=== PATIENT | male | born 1995 | race Caucasian/White ===

== ENCOUNTER 2018-07-16 09:09 | Inpatient (IN) ==
[2018-07-16] MEDS ORDERED: Acetaminophen 325 MG Tablet PO ONE (09:35)
[2018-07-16] MEDS ORDERED: Vancomycin Inj 1,000 MG in Sodium Chlor 0.9% Inj 250 ML IV.SIG STA (09:38)
[2018-07-16] MEDS ORDERED: Aztreonam Inj 2 GM in Sodium Chloride 0.9% Inj 100 ML IV.SIG STA (09:38)
[2018-07-16] MEDS ORDERED: Morphine Inj 4 MG/ML Vial IV.PUSH ONE (09:39)
[2018-07-16] MEDS ORDERED: Sod Chloride 0.9% Inj 400 ML IV.SIG SCH (09:45)
[2018-07-16] MEDS ORDERED: Sod Chloride 0.9% Inj 1,000 ML IV.SIG SCH ×2 (09:45)
[2018-07-16 09:56] LABS: Baso # (Auto) 1.3 th/mm3 (0.0-0.2); Baso % (Auto) 4.5 % (0.0-2.0); Eos % (Auto) 0.1 % (0.0-4.0); Hematocrit 47.2 % (39.0-51.0); Hemoglobin 16.3 gm/dL (13.0-17.0); Lymph # (Auto) 1.2 th/mm3 (1.0-4.8); Lymph % (Auto) 4.1 % (9.0-44.0); Mean Corpuscular HGB Conc 34.5 % (32.0-36.0); Mean Corpuscular Hemoglobin 30.8 pg (27.0-34.0); Mean Corpuscular Volume 89.1 fL (80.0-100.0); Mean Platelet Volume 7.6 fL (7.0-11.0); Mono # (Auto) 1.1 th/mm3 (0.0-0.9); Mono % (Auto) 3.8 % (0.0-8.0); Neut # (Auto) 25.1 th/mm3 (1.8-7.7); Neut % (Auto) 87.5 % (16.0-70.0); Platelet Count 227 th/mm3 (150-450); Red Cell Distribution Width 12.2 % (11.6-17.2); White Blood Count 28.7 th/mm3 (4.0-11.0)
[2018-07-16 10:03] LABS: Chloride 98 meq/L (98-107); Potassium 3.6 meq/L (3.5-5.1); Sodium 134 meq/L (136-145)
[2018-07-16 10:06] LABS: Albumin 3.9 g/dL (3.4-5.0); Anion Gap 11 meq/L (5-15); Calcium 8.9 mg/dL (8.5-10.1); Glucose,Random 125 mg/dL (74-106); Magnesium 1.5 mg/dL (1.5-2.5)
[2018-07-16 10:07] LABS: Blood Urea Nitrogen 14 mg/dL (7-18)
[2018-07-16 10:09] LABS: Alanine Aminotransferase 22 U/L (12-78); Aspartate Aminotransferase 13 U/L (15-37)
[2018-07-16 10:10] LABS: Glomerular Filtration Rate 76 mL/min (>89)
--- NOTE | 2018-07-16 10:10 | ED ---
HPI General Chief complaint: Skin/Abscess/Foreign Body Stated complaint: pain/swelling lt elbow x yesterday Time Seen by Provider: 07/16/18 09:33 Source: patient Mode of arrival: ambulatory Limitations: no limitations History of Present Illness MD complaint: Reports discoloration (Redness and swelling) Onset (ago): day(s) (1) Location: Reports LUE Severity scale (1-10): 6 Quality: Reports aching Pain Consistency: constant Relieving factors: other (Being still) Exacerbating factors: movement Context: Reports other (He states that he cut his elbow at work a couple weeks ago. The wound healed. The redness and swelling started yesterday.) Associated symptoms: Reports fever, chills, nausea and vomiting Treatments prior to arrival: Reports none Related Data Home Medications Medication Instructions Recorded Confirmed timolol 1 drp OPHTHALMIC (EYE) DAILY 07/16/18 07/16/18 Allergies Allergy/AdvReac Type Severity Reaction Status Date / Time amoxicillin Allergy Hives Verified 07/16/18 09:19 Review of Systems ROS: all other systems reviewed are negative REPLACED BY [facility] Medical History Medical History Glaucoma suspect of both eyes (Acute) Social History Social History Substance History: No History of Abuse Second Hand Smoke Exposure: No Smoking Status: Current every day smoker Tobacco Type: E-Cigarettes How Often Do You Have a Drink Containing Alcohol: 2 to 4 times a month Recent Travel in [facility] within the Last 8 Weeks: No Recent Out of Country Travel within the Last 8 Weeks: No Immunization History Tetanus Immunization: Unsure Exam Const General: cooperative, healthy appearing, comfortable, no acute distress, well developed and well groomed Orientation: alert, awake and oriented x3 HENMT Head: normal to inspection, normocephalic and atraumatic Nose: no nasal discharge and no epistaxis Mouth: moist mucous membranes Eyes Conjunctivae: conjunctivae normal Sclera: sclerae normal Pupils: PERRL EOM: EOM intact bilaterally Neck Neck: normal visual inspection and full ROM Chest Chest: normal inspection of the chest Resp Effort & Inspection: normal respiratory effort and able to speak in complete sentences Auscultation: clear to auscultation bilaterally Cardio Rate: regular rate Rhythm: regular rhythm Heart Sounds: no murmurs GI Inspection: non-distended Palpation: soft, no hepatosplenomegaly and nontender Back/Spine/Pelvis Cervical Spine: cervical ROM normal Thoracic/Lumbar Spine: thoraco-lumbar ROM normal Skin General: erythema and other (Hot and swollen. No palpable fluctuance.) Neuro General: alert, awake, oriented x3, moves all extremities and CN's II-XI intact bilaterally Cranial Nerves: other Speech: speech normal Motor: no movement abnormalities noted Extrem General: normal to inspection and full ROM Psych Appearance: grossly normal Mental Status: mental status grossly normal Speech and Movement: speech and movement normal Mood: congruent mood Affect: normal affect Attitude: cooperative Thought Process: normal Thought Content: normal Judgment: judgment good Procedures Ultrasound POC Ultrasound Procedure: Ultrasound showed no fluid collection Course Consultations Consultation #1: Dr. Barnes will admit Time: 10:21 Initial Documented Vital Signs Temperature 101.8 F H 07/16/18 09:16 Pulse Rate 122 H 07/16/18 09:16 Respiratory Rate 20 07/16/18 09:16 Blood Pressure 112/73 07/16/18 09:16 Pulse Oximetry 97 07/16/18 09:16 Last Documented Vital Signs Temperature 101.8 F H 07/16/18 09:16 Pulse Rate 122 H 07/16/18 09:16 Respiratory Rate 20 07/16/18 09:16 Blood Pressure 112/73 07/16/18 09:16 Pulse Oximetry 97 07/16/18 09:16 Critical Care Time Critical Care Time: Yes Total Critical Care Time: 30 Attestation: Time to perform other separately billable procedures was not included in the critical care time. My time did not include minutes spent treating any other patients simultaneously or on activities that did not directly contribute to the patient's treatment. The services I provided to this patient were to treat and/or prevent clinically significant deterioration due to sepsis I provided critical care services requiring my management, as noted below: Chart data review, documentation time, medication orders and management, vital sign assessments/reviewing monitor data, ordering and reviewing lab tests, ordering and interpreting/reviewing x-rays and diagnostic studies, care of the patient and discussion of the patient with the admitting physicians Medical Decision Making MDM Narrative Medical decision making narrative: This patient presents with redness and swelling of the left elbow which started yesterday. He reports a cut to the elbow a couple of weeks ago which healed without incident. Associated symptoms include fever and nausea/vomiting. He is allergic to penicillin. He meets SIRS and sepsis criteria. Because of the penicillin allergy, he is being treated with aztreonam, Flagyl and vancomycin. He is also receiving a 30 cc/kg fluid bolus, Tylenol for fever, Zofran for nausea and morphine for pain. This patient needs to be admitted for IV antibiotics. Medical Screen Exam Complete: Yes Emergency Medical Condition: Yes Lab Data Lab results reviewed: Yes I reviewed the patient's lab results. Result diagrams: 07/16/18 09:40 07/16/18 09:40 Lab Results 07/16/18 07/16/18 07/16/18 Range/Units 09:40 09:40 09:40 CBC w Diff Slide review pending WBC 28.7 H (4.0-11.0) th/mm3 RBC 5.30 (4.50-5.90) mil/mm3 Hgb 16.3 (13.0-17.0) gm/dL Hct 47.2 (39.0-51.0) % MCV 89.1 (80.0-100.0) fL MCH 30.8 (27.0-34.0) pg MCHC 34.5 (32.0-36.0) % RDW 12.2 (11.6-17.2) % Plt Count 227 (150-450) th/mm3 MPV 7.6 (7.0-11.0) fL Neut % (Auto) 87.5 H (16.0-70.0) % Lymph % (Auto) 4.1 L (9.0-44.0) % [place] % (Auto) 3.8 (0.0-8.0) % Eos % (Auto) 0.1 (0.0-4.0) % Baso % (Auto) 4.5 H (0.0-2.0) % Neut # (Auto) 25.1 H (1.8-7.7) th/mm3 Lymph # (Auto) 1.2 (1.0-4.8) th/mm3 [place] # (Auto) 1.1 H (0.0-0.9) th/mm3 Eos # (Auto) 0.0 (0.0-0.4) th/mm3 Baso # (Auto) 1.3 H (0.0-0.2) th/mm3 Differential Comment . Sodium 134 L (136-145) meq/L Potassium 3.6 (3.5-5.1) meq/L Chloride 98 (98-107) meq/L Carbon Dioxide 25.0 (21.0-32.0) meq/L Anion Gap 11 (5-15) meq/L BUN 14 (7-18) mg/dL Creatinine 1.20 (0.60-1.30) mg/dL Estimated GFR 76 L (>89) mL/min Random Glucose 125 H (74-106) mg/dL Lactic Acid 2.5 H (0.4-2.0) mmol/L Calcium 8.9 (8.5-10.1) mg/dL Magnesium 1.5 (1.5-2.5) mg/dL Total Bilirubin 1.5 H (0.2-1.0) mg/dL AST 13 L (15-37) U/L ALT 22 (12-78) U/L Alkaline Phosphatase 75 (45-117) U/L Total Protein 7.3 (6.4-8.2) g/dL Albumin 3.9 (3.4-5.0) g/dL Discharge Plan Discharge Disposition Patient Disposition: 30 Still Patient Discharge Details Diagnosis: Sepsis, Cellulitis Physicians Team ED Provider: Courtney Mann Primary Care Provider: Primary Care [facility] Treviño Rxs /Orders / Referrals /Forms Prescriptions: No Action timolol 0.5 % Drops 1 drp OPHTHALMIC (EYE) DAILY RF: 0 Status ED Status: Pending Admission
[2018-07-16 10:11] LABS: Total Protein 7.3 g/dL (6.4-8.2)
[2018-07-16 10:12] LABS: Alkaline Phosphatase 75 U/L (45-117)
[2018-07-16 10:30] LABS: Eosinophils 1 % (0-4); Lymphocytes 2 % (9-44); Monocytes 5 % (0-8)
[2018-07-16 10:31] LABS: Platelet Estimate Normal (Normal); Platelet Morphology Normal (Normal); RBC Morphology Normal (Normal); Toxic Granulation 1+
[2018-07-16] MEDS ORDERED: Bisacodyl 10 MG Supp RECTAL PRN (11:00)
--- NOTE | 2018-07-16 11:53 | P.HP ---
History of Present Illness Primary Care Physician: No Primary Care Physician Chief Complaint: Left elbow swelling and pain History of Present Illness: This is a 22-year-old male patient who presented to the ED with complaints of left elbow swelling and pain. Patient states that about 2 weeks ago he had cut his left elbow on something, he cannot recall what, and since that time he has been using Neosporin for the cut. He states that the cut had been improving although overnight he developed a fever of 102.5 as well as nausea and vomiting , which prompted his presentation to the ED. He states that last night his left elbow pain worsened as well as the swelling. At the time of assessment today he is unable to fully extend his elbow without significant pain. Elbow is swollen without any fluctuance, does have erythema localized to the elbow. - Diagnosis (1) Sepsis (2) Cellulitis Inpatient Certification: I certify that the inpatient services were ordered in accordance with Medicare regulations governing the order. This includes certification that hospital inpatient services are reasonable and necessary and in the case of services not specified as inpatient-only under 42 CFR 419.22(n), that they are appropriately provided as inpatient services in accordance to with the 2-midnight benchmark under 43 CFR 412.3(e) Estimated Total Length of Stay (Days): 3 Plans for Post Hospital Care: Home Review of Systems All other systems reviewed negative except as stated in HPI PMFSH - History History Provided By: Patient, Family Member - Medical / Surgical Hx Neg / Unobtainable Surgical History: No Previous Surgery - Medical History Medical History: Medical History (Last Reviewed 07/16/18 @ 11:53 by Ashli Vines) Glaucoma suspect of both eyes - Family History Family History: Family History (Last Updated 07/16/18 @ 12:46 by Ashli Vines) Other Family history in first degree relatives is unremarkable - Social History I have reviewed the patient's Social History: Yes - Tobacco History Second Hand Smoke Exposure: No Tobacco Use In Past 30 Days: No Smoking Status: Current every day smoker Tobacco Type: E-Cigarettes - Alcohol History How Often Do You Have a Drink Containing Alcohol: 2 to 4 times a month - Substance Use History Substance History: No History of Abuse - Travel History Recent Travel in the [place] Within the Last 8 Weeks: No Recent Travel Out of the Country Within the Last 8 Weeks: No - Immunization History Tetanus Immunization: Unsure Medications and Allergies Active Medications: Active Medications Acetaminophen (Tylenol) 650 mg PO Q4H PRN PRN Reason: Temp > 100.4 Al Hydroxide/Mg Hydroxide (Milk Of Magnesia Liq) 30 ml PO Q12H PRN PRN Reason: Mild Constipation Bisacodyl (Dulcolax Supp) 10 mg RECTAL DAILY PRN PRN Reason: SEVERE CONSITIPATION Sodium Chloride (Ns Inj) 1,000 mls @ 0 mls/hr IV.SIG .Q0M REYNALDO Last Infusion: 07/16/18 10:37 Dose: Infused Sodium Chloride (Ns Inj) 1,000 mls @ 0 mls/hr IV.SIG .Q0M REYNALDO Last Admin: 07/16/18 10:36 Dose: 999 mls/hr Sodium Chloride (Ns Inj) 400 mls @ 0 mls/hr IV.SIG .Q0M REYNALDO Sodium Chloride (Ns Inj) 1,000 mls @ 100 mls/hr IV.CONT .Q10H REYNALDO Vancomycin HCl 1,000 mg/ (Sodium Chloride) 250 mls @ 250 mls/hr IV.SIG Q24H REYNALDO Aztreonam 2 gm/ Sodium (Chloride) 100 mls @ 200 mls/hr IV.SIG Q8H REYNALDO Lactulose (Lactulose Liq) 30 ml PO DAILY PRN PRN Reason: SEVERE CONSITIPATION Ondansetron HCl (Zofran Inj) 4 mg IV.PUSH Q6H PRN PRN Reason: NAUSEA OR VOMITING Sennosides (Senokot) 17.2 mg PO Q12H PRN PRN Reason: Moderate Constipation Allergies Allergy/AdvReac Type Severity Reaction Status Date / Time amoxicillin Allergy Hives Verified 07/16/18 09:19 Home Medications Medication Instructions Recorded Confirmed Type timolol 1 drp OPHTHALMIC (EYE) DAILY 07/16/18 07/16/18 History Exam Vital signs: Vital Signs 07/16/18 09:16 07/16/18 10:27 Temperature 101.8 F H 99.8 F H Pulse Rate 122 H 112 H Respiratory Rate 20 18 Blood Pressure 112/73 122/53 L Pulse Oximetry 97 98 Intake & Output 07/15/18 07/16/18 07/16/18 18:59 06:59 18:59 Intake Total 1100 / 1100 Balance 1100 / 1100 Weight 74.6 kg Intake: IV 1100 / 1100 Azactam Inj 2 GM In NS Inj 100 100 / 100 ML @ 200 mls/hr IV.SIG STAT STA Rx#:[id number] NS Inj 1,000 ML @ Wide Open IV. 1000 / 1000 SIG .Q0M REYNALDO Rx#:[id number] Narrative: GENERAL: Well-developed, well-nourished patient in NAD. SKIN: Warm and dry. No rash. LEFT ELBOW: Limited range of motion, significant swelling to left elbow joint and erythema localized to area. No fluctuance. HEAD: Normocephalic. Atraumatic. EYES: Pupils equal and round. No scleral icterus. No injection or drainage. ENT: No nasal bleeding or discharge. Mucous membranes pink and moist. NECK: Supple. Trachea midline. CARDIOVASCULAR: Regular rate and rhythm. S1, S2 noted. No murmur appreciated. RESPIRATORY: No accessory muscle use. Clear to auscultation. Breath sounds equal bilaterally. GASTROINTESTINAL: Abdomen soft, non-tender, nondistended. Normoactive bowel sounds x4. MUSCULOSKELETAL: No obvious deformities. Extremities without clubbing, cyanosis , or edema. NEUROLOGICAL: Awake and alert. No obvious cranial nerve deficits. Motor grossly within normal limits. 5/5 muscle strength in bilateral upper and lower extremities. Normal speech. PSYCHIATRIC: Appropriate mood and affect; insight and judgment normal. Results - Labs CBC & Chem 7: 07/16/18 09:40 07/16/18 09:40 Labs: Laboratory Results - last 24 hr 07/16/18 07/16/18 07/16/18 09:40 09:40 09:40 CBC w Diff Slide review pending WBC 28.7 H RBC 5.30 Hgb 16.3 Hct 47.2 MCV 89.1 MCH 30.8 MCHC 34.5 RDW 12.2 Plt Count 227 MPV 7.6 Neut % (Auto) 87.5 H Lymph % (Auto) 4.1 L [place] % (Auto) 3.8 Eos % (Auto) 0.1 Baso % (Auto) 4.5 H Neut # (Auto) 25.1 H Lymph # (Auto) 1.2 [place] # (Auto) 1.1 H Eos # (Auto) 0.0 Baso # (Auto) 1.3 H WBC Differential Manual diff final Seg Neuts % (Manual) 74 H Band Neuts % (Manual) 17 H Lymphocytes % (Manual) 2 L Monocytes % (Manual) 5 Eosinophils % (Manual) 1 Basophils % (Manual) 1 Abs Neuts (Manual) 26.1 H Differential Comment . Toxic Granulation 1+ H Platelet Estimate Normal Platelet Morphology Normal RBC Morphology Normal Sodium 134 L Potassium 3.6 Chloride 98 Carbon Dioxide 25.0 Anion Gap 11 BUN 14 Creatinine 1.20 Estimated GFR 76 L Random Glucose 125 H Lactic Acid 2.5 H Calcium 8.9 Magnesium 1.5 Total Bilirubin 1.5 H AST 13 L ALT 22 Alkaline Phosphatase 75 Total Protein 7.3 Albumin 3.9 Caprini VTE Risk Assessment Caprini VTE Risk Assessment: No/Low Risk (score <= 1) Caprini Risk Assessment Model: Point Value = 1 Point Value = 2 Point Value = 3 Point Value = 5 Age 41-60 Minor surgery BMI > 25 kg/m2 Swollen legs Varicose veins or History of unexplained or recurrent spontaneous Oral contraceptives or hormone replacement Sepsis (< 1 month) Serious lung disease, including pneumonia (< 1 month) Abnormal pulmonary function Acute myocardial infarction Congestive heart failure (< 1 month) History of inflammatory bowel disease Medical patient at bed rest Age 61-74 Arthroscopic surgery Major open surgery (> 45 min) Laparoscopic surgery (> 45 min) Malignancy Confined to bed (> 72 hours) Immobilizing plaster cast Central venous access Age >= 75 History of VTE Family history of VTE Factor V Leiden Prothrombin [id number] Lupus anticoagulant Anticardiolipin antibodies Elevated serum homocysteine Heparin-induced thrombocytopenia Other congenital or acquired thrombophilia Stroke (< 1 month) Elective arthroplasty Hip, pelvis, or leg fracture Acute spinal cord injury (< 1 month) Prophylaxis Regimen: Total Risk Factor Score Risk Level Prophylaxis Regimen 0-1 Low Early ambulation 2 Moderate Order ONE of the following: *Sequential Compression Device (SCD) *Heparin 5000 units SQ BID 3-4 Higher Order ONE of the following medications: *Heparin 5000 units SQ TID *Enoxaparin/Lovenox 40 mg SQ daily (WT < 150 kg, CrCl > 30 mL/min) *Enoxaparin/Lovenox 30 mg SQ daily (WT < 150 kg, CrCl > 10-29 mL/min) *Enoxaparin/Lovenox 30 mg SQ BID (WT < 150 kg, CrCl > 30 mL/min) AND/OR *Sequential Compression Device (SCD) 5 or more Highest Order ONE of the following medications: *Heparin 5000 units SQ TID (Preferred with Epidurals) *Enoxaparin/Lovenox 40 mg SQ daily (WT < 150 kg, CrCl > 30 mL/min) *Enoxaparin/Lovenox 30 mg SQ daily (WT < 150 kg, CrCl > 10-29 mL/min) *Enoxaparin/Lovenox 30 mg SQ BID (WT < 150 kg, CrCl > 30 mL/min) AND *Sequential Compression Device (SCD) Assessment and Plan - Assessment (1) Sepsis Code(s): A41.9 - Sepsis, unspecified organism Status: Acute (2) Cellulitis Code(s): L03.90 - Cellulitis, unspecified Status: Acute - Plan This is a 22-year-old male patient with: Sepsis Left elbow cellulitis -Patient complaint of abrasion to laceration to left elbow x 2 weeks ago. Worsened pain and swelling x 1 day with reported fever at home. -Met sepsis criteria with leukocytosis WBC 28,000, tachycardia, elevated lactic acid suspected source left elbow. -Blood cultures ordered and pending. Follow. -Started on Azactam and Vancomycin in ED. Will Continue. -Monitor CBC in am. Monitor for continued fever. -Ensure hydration, given 2L NS in ED. Will continue IVF. Encourage PO intake as tolerated. -Was given IV morphine in ED. Will continue as needed per pain scale. -US performed in ED did not show an abscess. Will order CT scan for further imaging. Follow. -Supportive care. DVT Prophylaxis: Ambulation. (1) Sepsis Qualifiers: Sepsis type: sepsis due to unspecified organism Qualified Code(s): A41.9 - Sepsis, unspecified organism (2) Cellulitis Qualifiers: Site of cellulitis: extremity Site of cellulitis of extremity: upper extremity Laterality: left Qualified Code(s): L03.114 - Cellulitis of left upper limb
[2018-07-16] MEDS ORDERED: Aztreonam Inj 2 GM in Sodium Chloride 0.9% Inj 100 ML IV.SIG SCH (12:00)
[2018-07-16] MEDS ORDERED: Morphine Inj 4 MG/ML Vial IV.PUSH PRN (12:50)
[2018-07-16] MEDS: Sod Chloride 0.9% Inj 1,000 ML IV.CONT SCH ×2 (13:06→20:08)
[2018-07-16] MEDS: Acetaminophen 325 MG Tablet PO PRN ×2 (15:04→18:48)
[2018-07-16] MEDS ORDERED: Vancomycin Consult Pharmacy OTHER PRN (16:24)
--- NOTE | 2018-07-16 16:37 | CT ---
EXAM DATE: 07/16/2018 4:29 PM EST AGE/SEX: 22 years / Male INDICATIONS: Left elbow pain, swelling, redness, fever CLINICAL DATA: This is the patient's initial encounter. Patient reports that signs and symptoms have been present for 1 day and indicates a pain score of 3/10. MEDICAL/SURGICAL HISTORY: None. None. RADIATION DOSE: 15.42 CTDI (mGy) COMPARISON: No prior exams available for comparison. TECHNIQUE: Multiple contiguous axial images were acquired using a multirow detector CT scanner after intravenous administration of 94ML ml Omnipaque 350 (iohexol) nonionic water-soluble contrast as a single exam dose.. Multiplanar reconstruction was performed in the sagittal and coronal planes. Usi ng automated exposure control and adjustment of the mA and/or kV according to patient size, radiation dose was kept as low as reasonably achievable to obtain optimal diagnostic quality images. DICOM fo rmat image data is available electronically for review and comparison. FINDINGS: Bones: The bony structures about the elbow are in normal alignment. The distal humerus and proximal radius and ulna are intact. No fracture is seen. Joints: No significant arthropathy or bony hypertrophy is seen. No elbow joint effusion is noted. Soft Tissues: Diffuse subcutaneous swelling is noted suggesting cellulitis. No deep soft tissue absc ess is noted. Other: No foreign bodies seen. Post Contrast: No abnormal areas of enhancement are seen in the marrow or soft tissues. CONCLUSION: 1. Diffuse subcutaneous swelling suggesting cellulitis. 2. No acute fracture, dislocation or other bony abnormality. Electronically signed by: Wellington Ferrell MD 07/16/2018 4:35 PM EST
[2018-07-16] MEDS: Aztreonam Inj 2 GM in Sodium Chloride 0.9% Inj 100 ML IV.SIG SCH (17:50)
[2018-07-16] MEDS ORDERED: Vancomycin Inj 1,250 MG in Sodium Chlor 0.9% Inj 250 ML IV.SIG SCH (18:00)
[2018-07-16] MEDS: Vancomycin Inj 1,250 MG in Sodium Chlor 0.9% Inj 250 ML IV.SIG SCH (20:07)
[2018-07-16 23:48] LABS: Amphetamine Screen,Urine Neg (Neg); Cannabinoid Screen,Urine Pos (Neg)
[2018-07-16 23:56] LABS: Barbiturate Screen,Urine Neg (Neg)
[2018-07-17] MEDS ORDERED: Ketorolac Inj 30 MG/ML (IVP) Vial IV.PUSH ONE (00:05)
[2018-07-17 00:18] LABS: Cocaine Screen,Urine Neg (Neg)
[2018-07-17 00:23] LABS: Opiate Screen,Urine Neg (Neg)
[2018-07-17] MEDS ORDERED: Pantoprazole Inj 40 MG Vial IV.PUSH SCH (01:00)
[2018-07-17] MEDS: Acetaminophen 325 MG Tablet PO PRN ×2 (01:20→12:09)
[2018-07-17] MEDS: Aztreonam Inj 2 GM in Sodium Chloride 0.9% Inj 100 ML IV.SIG SCH ×3 (01:20→17:02)
[2018-07-17] MEDS: Vancomycin Inj 1,250 MG in Sodium Chlor 0.9% Inj 250 ML IV.SIG SCH ×2 (04:52→12:10)
[2018-07-17 07:06] LABS: Baso % (Auto) 0.1 % (0.0-2.0); Eos % (Auto) 0.1 % (0.0-4.0); Hematocrit 39.8 % (39.0-51.0); Lymph # (Auto) 1.2 th/mm3 (1.0-4.8); Lymph % (Auto) 5.3 % (9.0-44.0); Mean Corpuscular HGB Conc 34.3 % (32.0-36.0); Mean Corpuscular Hemoglobin 30.8 pg (27.0-34.0); Mean Corpuscular Volume 89.8 fL (80.0-100.0); Mono # (Auto) 0.9 th/mm3 (0.0-0.9); Mono % (Auto) 3.9 % (0.0-8.0); Neut # (Auto) 20.8 th/mm3 (1.8-7.7); Neut % (Auto) 90.6 % (16.0-70.0); Red Blood Count 4.43 mil/mm3 (4.50-5.90); Red Cell Distribution Width 12.4 % (11.6-17.2); White Blood Count 22.9 th/mm3 (4.0-11.0)
[2018-07-17 07:22] LABS: Hemoglobin 13.7 gm/dL (13.0-17.0); Platelet Count 154 th/mm3 (150-450)
[2018-07-17 08:22] LABS: Anion Gap 10 meq/L (5-15); Blood Urea Nitrogen 11 mg/dL (7-18); Carbon Dioxide 22.6 meq/L (21.0-32.0); Chloride 106 meq/L (98-107); Glomerular Filtration Rate Greater Than 89 mL/min (>89); Glucose,Random 109 mg/dL (74-106); Potassium 3.9 meq/L (3.5-5.1); Sodium 139 meq/L (136-145)
[2018-07-17 08:23] LABS: Alanine Aminotransferase 22 U/L (12-78); Albumin 2.6 g/dL (3.4-5.0); Alkaline Phosphatase 57 U/L (45-117); Aspartate Aminotransferase 16 U/L (15-37); Calcium 7.6 mg/dL (8.5-10.1); Total Protein 5.5 g/dL (6.4-8.2)
[2018-07-17] MEDS: Timolol 0.5% Drops 5 ML Bottle EACH EYE SCH (09:44)
[2018-07-17] MEDS: Sod Chloride 0.9% Inj 1,000 ML IV.CONT SCH ×2 (09:44→20:17)
--- NOTE | 2018-07-17 09:54 | P.PNIM ---
Subjective Interval history: Follow up left upper arm cellulitis. Patient seen and examined, does admit to some nausea and vomiting overnight, states Compazine worked well. Pain is well controlled on Toradol. Fever overnight. Physical Exam Vital signs: Vital Signs 07/16/18 10:27 07/16/18 12:00 07/16/18 16:00 Temperature 99.8 F H 100.7 F H 100.7 F H Pulse Rate 112 H 118 H 82 Respiratory Rate 18 18 15 Blood Pressure 122/53 L 112/57 L 114/71 Pulse Oximetry 98 98 07/16/18 20:00 07/17/18 00:00 07/17/18 04:00 Temperature 99.6 F 101.6 F H 97.4 F L Pulse Rate 92 H 119 H Respiratory Rate 20 20 Blood Pressure 121/59 L 123/59 L Pulse Oximetry 98 97 07/17/18 08:00 Temperature 96.5 F L Pulse Rate 97 H Respiratory Rate 20 Blood Pressure 121/59 L Pulse Oximetry 98 Intake & Output 07/16/18 07/17/18 07/17/18 18:59 06:59 18:59 Intake Total 3190 / 3190 3092.5 / 3092.5 12. / 12.5 Balance 3190 / 3190 3092.5 / 3092.5 12. / 12.5 Weight 77 kg 77 kg Intake: IV 2950 / 2950 2612.5 / 2612.5 12.5 / 12.5 NS Inj 1,000 ML @ 100 mls/hr IV 1999 / 1999 .CONT .Q10H [facility] Rx#:[id number] Azactam Inj 2 GM In NS Inj 100 200 / 200 100 / 100 ML @ 200 mls/hr IV.SIG Q8H [facility] Rx#:[id number] NS Inj 400 ML @ Wide Open IV. 2400 / 2400 SIG .Q0M [facility] Rx#:[id number] Vancomycin Inj 1,000 MG In NS 250 / 250 Inj 250 ML @ 250 mls/hr IV.SIG STAT STA Rx#:[id number] Vancomycin Inj 1,250 MG In NS 512.5 / 512.5 12.5 / 12.5 Inj 250 ML @ 250 mls/hr IV.SIG Q8H [facility] Rx#:[id number] Flagyl 500 MG Inj 100 ML @ 100 100 / 100 mls/hr IV.SIG STAT STA Rx#: [id number] Oral 240 / 240 480 / 480 Other: # Voids 1 3 Weight On Admission 77 kg Narrative: GENERAL: Well-developed, well-nourished patient in NAD. SKIN: Warm and dry. No rash. LEFT ELBOW: Limited range of motion, swelling to left elbow and forearm, erythema improved significantly. No paraesthesia or numbness, sensation intact. HEAD: Normocephalic. Atraumatic. EYES: Pupils equal and round. No scleral icterus. No injection or drainage. ENT: No nasal bleeding or discharge. Mucous membranes pink and moist. NECK: Supple. Trachea midline. CARDIOVASCULAR: Regular rate and rhythm. S1, S2 noted. No murmur appreciated. RESPIRATORY: No accessory muscle use. Clear to auscultation. Breath sounds equal bilaterally. GASTROINTESTINAL: Abdomen soft, non-tender, nondistended. Normoactive bowel sounds x4. MUSCULOSKELETAL: No obvious deformities. Extremities without clubbing, cyanosis , or edema. NEUROLOGICAL: Awake and alert. No obvious cranial nerve deficits. Motor grossly within normal limits. 5/5 muscle strength in bilateral upper and lower extremities. Normal speech. PSYCHIATRIC: Appropriate mood and affect; insight and judgment normal. Results - Labs CBC & Chem 7: 07/17/18 06:30 07/17/18 06:30 Laboratory Results - last 24 hr 07/16/18 07/16/18 07/16/18 09:40 09:40 09:40 CBC w Diff Slide review pending WBC 28.7 H RBC 5.30 Hgb 16.3 Hct 47.2 MCV 89.1 MCH 30.8 MCHC 34.5 RDW 12.2 Plt Count 227 MPV 7.6 Neut % (Auto) 87.5 H Lymph % (Auto) 4.1 L [place] % (Auto) 3.8 Eos % (Auto) 0.1 Baso % (Auto) 4.5 H Neut # (Auto) 25.1 H Lymph # (Auto) 1.2 [place] # (Auto) 1.1 H Eos # (Auto) 0.0 Baso # (Auto) 1.3 H WBC Differential Manual diff final Seg Neuts % (Manual) 74 H Band Neuts % (Manual) 17 H Lymphocytes % (Manual) 2 L Monocytes % (Manual) 5 Eosinophils % (Manual) 1 Basophils % (Manual) 1 Abs Neuts (Manual) 26.1 H Differential Comment . Toxic Granulation 1+ H Platelet Estimate Normal Platelet Morphology Normal RBC Morphology Normal Sodium 134 L Potassium 3.6 Chloride 98 Carbon Dioxide 25.0 Anion Gap 11 BUN 14 Creatinine 1.20 Estimated GFR 76 L Random Glucose 125 H Lactic Acid 2.5 H Calcium 8.9 Magnesium 1.5 Total Bilirubin 1.5 H AST 13 L ALT 22 Alkaline Phosphatase 75 Total Protein 7.3 Albumin 3.9 Urine Opiates Screen Ur Barbiturates Screen Ur Amphetamines Screen U Benzodiazepines Scrn Urine Cocaine Screen U Cannabinoids Screen 07/16/18 07/16/18 07/17/18 12:20 23:30 06:30 CBC w Diff Slide review pending WBC 22.9 H RBC 4.43 L Hgb 13.7 D Hct 39.8 MCV 89.8 MCH 30.8 MCHC 34.3 RDW 12.4 Plt Count 154 D MPV 8.0 Neut % (Auto) 90.6 H Lymph % (Auto) 5.3 L [place] % (Auto) 3.9 Eos % (Auto) 0.1 Baso % (Auto) 0.1 Neut # (Auto) 20.8 H Lymph # (Auto) 1.2 [place] # (Auto) 0.9 Eos # (Auto) 0.0 Baso # (Auto) 0.0 WBC Differential . Seg Neuts % (Manual) Band Neuts % (Manual) Lymphocytes % (Manual) Monocytes % (Manual) Eosinophils % (Manual) Basophils % (Manual) Abs Neuts (Manual) Differential Comment . Toxic Granulation Platelet Estimate Platelet Morphology RBC Morphology Sodium Potassium Chloride Carbon Dioxide Anion Gap BUN Creatinine Estimated GFR Random Glucose Lactic Acid 2.4 H Calcium Magnesium Total Bilirubin AST ALT Alkaline Phosphatase Total Protein Albumin Urine Opiates Screen Neg Ur Barbiturates Screen Neg Ur Amphetamines Screen Neg U Benzodiazepines Scrn Neg Urine Cocaine Screen Neg U Cannabinoids Screen Pos H 07/17/18 06:30 CBC w Diff WBC RBC Hgb Hct MCV MCH MCHC RDW Plt Count MPV Neut % (Auto) Lymph % (Auto) [place] % (Auto) Eos % (Auto) Baso % (Auto) Neut # (Auto) Lymph # (Auto) [place] # (Auto) Eos # (Auto) Baso # (Auto) WBC Differential Seg Neuts % (Manual) Band Neuts % (Manual) Lymphocytes % (Manual) Monocytes % (Manual) Eosinophils % (Manual) Basophils % (Manual) Abs Neuts (Manual) Differential Comment Toxic Granulation Platelet Estimate Platelet Morphology RBC Morphology Sodium 139 Potassium 3.9 Chloride 106 D Carbon Dioxide 22.6 Anion Gap 10 BUN 11 Creatinine 0.74 Estimated GFR Greater than 89 Random Glucose 109 H Lactic Acid Calcium 7.6 L D Magnesium Total Bilirubin 1.5 H AST 16 ALT 22 Alkaline Phosphatase 57 Total Protein 5.5 L D Albumin 2.6 L D Urine Opiates Screen Ur Barbiturates Screen Ur Amphetamines Screen U Benzodiazepines Scrn Urine Cocaine Screen U Cannabinoids Screen - Imaging Impressions Elbow CT 07/16/18 00:00 CONCLUSION: 1. Diffuse subcutaneous swelling suggesting cellulitis. 2. No acute fracture, dislocation or other bony abnormality. Assessment and Plan - Assessment (1) Sepsis Code(s): A41.9 - Sepsis, unspecified organism Status: Acute (2) Cellulitis Code(s): L03.90 - Cellulitis, unspecified Status: Acute - Plan This is a 22-year-old male patient with: Sepsis Left elbow cellulitis -Patient complaint of abrasion to laceration to left elbow x 2 weeks ago. Worsened pain and swelling x 1 day with reported fever at home. -Met sepsis criteria with leukocytosis WBC 28,000, tachycardia, elevated lactic acid suspected source left elbow. -Blood cultures ordered and pending. Follow. WB trending down. Follow CBC in am. -Started on Azactam and Vancomycin in ED. Will Continue. -Monitor for continued fever. Fever overnight. -Ensure hydration, given 2L NS in ED. Will continue IVF. Encourage PO intake as tolerated. -Was given IV morphine in ED. Patient states Toradol works more effectively, started. -US performed in ED did not show an abscess. -CT of left elbow reviewed showing diffuse subcutaneous swelling suggesting cellulitis. -Encourage extremity elevation. -Compazine for nausea. -Supportive care. DVT Prophylaxis: Ambulation. Discharge Planning: Awaiting clinical improvement. (1) Sepsis Qualifiers: Sepsis type: sepsis due to unspecified organism Qualified Code(s): A41.9 - Sepsis, unspecified organism (2) Cellulitis Qualifiers: Site of cellulitis: extremity Site of cellulitis of extremity: upper extremity Laterality: left Qualified Code(s): L03.114 - Cellulitis of left upper limb
[2018-07-17] MEDS ORDERED: Pharmacy Ordered Lab Info OTHER ONE ×2 (11:45→15:00)
[2018-07-17] MEDS ORDERED: Vancomycin Inj 1,000 MG in Sodium Chlor 0.9% Inj 250 ML IV.SIG SCH (12:00)
[2018-07-17] MEDS: Ketorolac Inj 30 MG/ML (IVP) Vial IV.PUSH PRN (15:32)
[2018-07-17] MEDS: Vancomycin Inj 1,500 MG in Sodium Chlor 0.9% Inj 500 ML IV.SIG SCH (19:58)
[2018-07-18] MEDS: Aztreonam Inj 2 GM in Sodium Chloride 0.9% Inj 100 ML IV.SIG SCH ×3 (02:32→19:28)
[2018-07-18] MEDS: Acetaminophen 325 MG Tablet PO PRN ×2 (02:40→17:10)
[2018-07-18] MEDS: Vancomycin Inj 1,500 MG in Sodium Chlor 0.9% Inj 500 ML IV.SIG SCH ×3 (04:20→20:39)
[2018-07-18] MEDS: Ketorolac Inj 30 MG/ML (IVP) Vial IV.PUSH PRN ×2 (04:23→17:11)
[2018-07-18 06:22] LABS: Hemoglobin 12.7 gm/dL (13.0-17.0); Lymph # (Auto) 0.9 th/mm3 (1.0-4.8); Lymph % (Auto) 4.2 % (9.0-44.0); Mean Corpuscular HGB Conc 34.4 % (32.0-36.0); Mean Corpuscular Hemoglobin 30.9 pg (27.0-34.0); Mean Corpuscular Volume 89.8 fL (80.0-100.0); Mean Platelet Volume 8.4 fL (7.0-11.0); Mono # (Auto) 0.7 th/mm3 (0.0-0.9); Mono % (Auto) 3.4 % (0.0-8.0); Neut # (Auto) 19.6 th/mm3 (1.8-7.7); Neut % (Auto) 92.4 % (16.0-70.0); Platelet Count 147 th/mm3 (150-450); Red Blood Count 4.12 mil/mm3 (4.50-5.90); Red Cell Distribution Width 13.4 % (11.6-17.2); White Blood Count 21.2 th/mm3 (4.0-11.0)
--- NOTE | 2018-07-18 06:47 | P.PNOP ---
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 Over the past 5 days it is continue to progress and now has cellulitis to the left upper extremity. Patient has no other orthopedic complaints Physical Exam Vital signs: Vital Signs 07/17/18 08:00 07/17/18 12:00 07/17/18 16:00 Temperature 96.5 F L 101.9 F H 98.9 F Pulse Rate 97 H 123 H 107 H Respiratory Rate 20 20 20 Blood Pressure 121/59 L 104/54 L 128/63 Pulse Oximetry 98 99 98 07/17/18 20:00 07/18/18 00:00 07/18/18 02:35 Temperature 98.8 F 99.6 F 101.5 F H Pulse Rate 111 H 118 H Respiratory Rate 20 20 Blood Pressure 124/62 131/75 Pulse Oximetry 96 07/18/18 04:18 07/18/18 06:00 Temperature 98.9 F 98.1 F Pulse Rate 92 H Respiratory Rate 20 Blood Pressure 134/71 Pulse Oximetry 99 Intake & Output 07/17/18 07/17/18 07/18/18 06:59 18:59 06:59 Intake Total 3092.5 / 3092.5 1898.0 / 1898.0 1715 / 1715 Output Total 500 / 500 Balance 3092.5 / 3092.5 1898.0 / 1898.0 1215 / 1215 Weight 77 kg 77.6 kg Intake: IV 2612.5 / 2612.5 837.0 / 837.0 1715 / 1715 NS Inj 1,000 ML @ 100 mls/hr IV 1999 / 1999 1000 / 1000 .CONT .Q10H [facility] Rx#:[id number] Azactam Inj 2 GM In NS Inj 100 100 / 100 200 / 200 100 / 100 ML @ 200 mls/hr IV.SIG Q8H [facility] Rx#:[id number] Vancomycin Inj 1,500 MG In NS 512.5 / 512.5 537.0 / 537.0 515 / 515 Inj 500 ML @ 250 mls/hr IV.SIG Q8H [facility] Rx#:[id number] Flagyl 500 MG Inj 100 ML @ 100 100 / 100 100 / 100 mls/hr IV.SIG Q8H [facility] Rx#: [id number] Oral 480 / 480 1061 / 1061 Output: Urine 500 / 500 Other: # Voids 3 4 # Bowel Movements 1 Narrative: Left upper extremity: Cellulitis to the left upper extremity. Healed laceration approximately 1 cm over the elbow. Outline of cellulitis is maintained proximally but distally has extended the borders. Intact sensation over the radial ulnar and median nerve distributions with good capillary refills. Full extension and flexion of fingers. Some mild discomfort with range of motion of the elbow. Patient states it feels more like tightness from the swelling than necessarily pain in the elbow joint Results - Labs CBC & Chem 7: 07/18/18 04:53 07/17/18 06:30 Laboratory Results - last 24 hr 07/17/18 07/17/18 07/17/18 06:30 06:30 11:45 CBC w Diff Slide review pending WBC 22.9 H RBC 4.43 L Hgb 13.7 D Hct 39.8 MCV 89.8 MCH 30.8 MCHC 34.3 RDW 12.4 Plt Count 154 D MPV 8.0 Neut % (Auto) 90.6 H Lymph % (Auto) 5.3 L [place] % (Auto) 3.9 Eos % (Auto) 0.1 Baso % (Auto) 0.1 Neut # (Auto) 20.8 H Lymph # (Auto) 1.2 [place] # (Auto) 0.9 Eos # (Auto) 0.0 Baso # (Auto) 0.0 WBC Differential . Differential Comment . Sodium 139 Potassium 3.9 Chloride 106 D Carbon Dioxide 22.6 Anion Gap 10 BUN 11 Creatinine 0.74 Estimated GFR Greater than 89 Random Glucose 109 H Lactic Acid Calcium 7.6 L D Total Bilirubin 1.5 H AST 16 ALT 22 Alkaline Phosphatase 57 Total Protein 5.5 L D Albumin 2.6 L D Vancomycin Trough 11.4 H 07/17/18 07/17/18 07/18/18 11:45 17:32 04:53 CBC w Diff WBC 21.2 H RBC 4.12 L Hgb 12.7 L Hct 37.0 L MCV 89.8 MCH 30.9 MCHC 34.4 RDW 13.4 Plt Count 147 L MPV 8.4 Neut % (Auto) 92.4 H Lymph % (Auto) 4.2 L [place] % (Auto) 3.4 Eos % (Auto) 0.0 Baso % (Auto) 0.0 Neut # (Auto) 19.6 H Lymph # (Auto) 0.9 L [place] # (Auto) 0.7 Eos # (Auto) 0.0 Baso # (Auto) 0.0 WBC Differential . Differential Comment Auto diff final Sodium Potassium Chloride Carbon Dioxide Anion Gap BUN Creatinine Estimated GFR Random Glucose Lactic Acid 2.2 H 1.9 Calcium Total Bilirubin AST ALT Alkaline Phosphatase Total Protein Albumin Vancomycin Trough Microbiology 07/16/18 09:40 Blood - Peripheral Aerobic Blood Culture - Preliminary No growth in 1 day 07/16/18 09:40 Blood - Peripheral Anaerobic Blood Culture - Preliminary No growth in 1 day 07/16/18 09:45 Blood - Peripheral Aerobic Blood Culture - Preliminary No growth in 1 day 07/16/18 09:45 Blood - Peripheral Anaerobic Blood Culture - Preliminary No growth in 1 day Assessment and Plan - Assessment and Plan Left upper extremity cellulitis CT and ultrasound showed diffuse cellulitis without any abscesses or collections of fluid. On exam it does not appear to be a septic joint of the elbow. At this time continue antibiotic treatment and continued conservative measures. While the infection continues to improve we will assess the elbow and any further progress. Resume his diet
--- NOTE | 2018-07-18 07:21 | P.CONOP ---
[facility] Orthopedics Consult Note - [facility] Consult date: 07/18/18 Chief complaint: Sepsis, Left Elbow Cellulitis Narrative: Jose Antonio is a 22-year-old male. 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 He sustained a small cut on his elbow about 2 weeks ago. Approximately 3 days ago he began developing significant redness, swelling, and pain. He presented to the emergency room. He had a fever of 102.5. He is also developing nausea and vomiting. He has been admitted for IV antibiotics. Orthopedics has been consulted for evaluation. His only complaint is his left arm. He states that the swelling and pain have not changed much since yesterday. He is currently awake and alert. He denies any traumatic injury other than a small superficial laceration. He has minimal pain with elbow motion. Review of Systems Patient denies weight loss, headache, visual changes, hearing loss, chest pain, palpitations, shortness of breath, no urinary changes, diarrhea, bowel changes, neck pain, back pain, skin rashes, weakness of extremities, easy bleeding, enlarged lymph nodes, numbness of extremities, anxiety, or depression. He complains of left elbow pain, swelling, and warmth. He has had recent fevers, chills, nausea, and vomiting. Patient's social history, past medical history, and family history were reviewed on chart and with patient. [facility] - History History Provided By: Patient, Family Member - Medical History Medical History: Medical History (Last Reviewed 07/18/18 @ 07:18 by Andrew Smith MD) Glaucoma suspect of both eyes - Family History Family History: Family History (Last Reviewed 07/18/18 @ 07:18 by Andrew Smith MD) Other Family history in first degree relatives is unremarkable - Social History I have reviewed the patient's Social History: Yes - Tobacco History Second Hand Smoke Exposure: No Tobacco Use In Past 30 Days: No Smoking Status: Current every day smoker Tobacco Type: E-Cigarettes - Alcohol History How Often Do You Have a Drink Containing Alcohol: 2 to 4 times a month - Substance Use History Substance History: No History of Abuse - Travel History Recent Travel in the [facility] Within the Last 8 Weeks: No Recent Travel Out of the Country Within the Last 8 Weeks: No - Immunization History Tetanus Immunization: Unsure Hx Influenza Vaccine This Season: No Medications and Allergies Active Medications: Active Medications Acetaminophen (Tylenol) 650 mg PO Q4H PRN PRN Reason: Temp > 100.4 Last Admin: 07/18/18 02:40 Dose: 650 mg Al Hydroxide/Mg Hydroxide (Milk Of Magnesia Liq) 30 ml PO Q12H PRN PRN Reason: Mild Constipation Bisacodyl (Dulcolax Supp) 10 mg RECTAL DAILY PRN PRN Reason: SEVERE CONSITIPATION Sodium Chloride (Ns Inj) 1,000 mls @ 0 mls/hr IV.SIG .Q0M [facility] Last Infusion: 07/16/18 10:37 Dose: Infused Sodium Chloride (Ns Inj) 1,000 mls @ 0 mls/hr IV.SIG .Q0M [facility] Last Infusion: 07/16/18 12:00 Dose: Infused Sodium Chloride (Ns Inj) 400 mls @ 0 mls/hr IV.SIG .Q0M [facility] Last Infusion: 07/16/18 14:32 Dose: Infused Sodium Chloride (Ns Inj) 1,000 mls @ 100 mls/hr IV.CONT .Q10H [facility] Last Admin: 07/17/18 20:17 Dose: 100 mls/hr Aztreonam 2 gm/ Sodium (Chloride) 100 mls @ 200 mls/hr IV.SIG Q8H [facility] Last Infusion: 07/18/18 03:07 Dose: Infused Vancomycin HCl 1,500 mg/ (Sodium Chloride) 515 mls @ 250 mls/hr IV.SIG Q8H [facility] Last Admin: 07/18/18 04:20 Dose: 175 mls/hr Metronidazole/Sodium Chloride (Flagyl 500 Mg Inj) 100 mls @ 100 mls/hr IV.SIG Q8H [facility] Last Infusion: 07/18/18 02:26 Dose: Infused Ketorolac Tromethamine (Toradol Inj) 30 mg IV.PUSH Q6H PRN PRN Reason: PAIN SCALE 1 TO 10 Stop: 07/22/18 09:51 Last Admin: 07/18/18 04:23 Dose: 30 mg Lactulose (Lactulose Liq) 30 ml PO DAILY PRN PRN Reason: SEVERE CONSITIPATION Miscellaneous Information ([facility] Ordered Lab Info) 0 each OTHER ONCE ONE Stop: 07/18/18 11:46 Pharmacy Profile Note (Vancomycin Consult Pharmacy) 1 each OTHER UNSCH PRN PRN Reason: Pharmacy to dose Prochlorperazine Maleate (Compazine) 5 mg PO Q6H PRN PRN Reason: NAUSEA OR VOMITING Last Admin: 07/18/18 04:53 Dose: 5 mg Sennosides (Senokot) 17.2 mg PO Q12H PRN PRN Reason: Moderate Constipation Timolol Maleate (Timoptic 0.5% Drops) 1 drops EACH EYE DAILY [facility] Last Admin: 07/17/18 09:44 Dose: 1 drops Allergies Allergy/AdvReac Type Severity Reaction Status Date / Time amoxicillin Allergy Hives Verified 07/16/18 09:19 Home Medications Medication Instructions Recorded Confirmed Type timolol 1 drp OPHTHALMIC (EYE) DAILY 07/16/18 07/16/18 History Exam Vital signs: Vital Signs 07/17/18 08:00 07/17/18 12:00 07/17/18 16:00 Temperature 96.5 F L 101.9 F H 98.9 F Pulse Rate 97 H 123 H 107 H Respiratory Rate 20 20 20 Blood Pressure 121/59 L 104/54 L 128/63 Pulse Oximetry 98 99 98 07/17/18 20:00 07/18/18 00:00 07/18/18 02:35 Temperature 98.8 F 99.6 F 101.5 F H Pulse Rate 111 H 118 H Respiratory Rate 20 20 Blood Pressure 124/62 131/75 Pulse Oximetry 96 07/18/18 04:18 07/18/18 06:00 Temperature 98.9 F 98.1 F Pulse Rate 92 H Respiratory Rate 20 Blood Pressure 134/71 Pulse Oximetry 99 Intake & Output 07/17/18 07/18/18 07/18/18 18:59 06:59 18:59 Intake Total 1898.0 / 1898.0 1715 / 1715 Output Total 500 / 500 Balance 1898.0 / 1898.0 1215 / 1215 Weight 77.6 kg Intake: IV 837.0 / 837.0 1715 / 1715 NS Inj 1,000 ML @ 100 mls/hr IV 1000 / 1000 .CONT .Q10H [facility] Rx#:[id number] Azactam Inj 2 GM In NS Inj 100 200 / 200 100 / 100 ML @ 200 mls/hr IV.SIG Q8H [facility] Rx#:[id number] Vancomycin Inj 1,500 MG In NS 537.0 / 537.0 515 / 515 Inj 500 ML @ 250 mls/hr IV.SIG Q8H [facility] Rx#:[id number] Flagyl 500 MG Inj 100 ML @ 100 100 / 100 100 / 100 mls/hr IV.SIG Q8H [facility] Rx#: [id number] Oral 1061 / 1061 Output: Urine 500 / 500 Other: # Voids 4 # Bowel Movements 1 Narrative: Jose Antonio is a 22-year-old male. General: Awake and alert. No acute distress. Appears well-developed well- nourished Head: Normocephalic, atraumatic pupils are equal Neck: Soft, nontender, trachea midline Abdomen: Soft, nondistended Examination of right arm reveals no pain or deformity with shoulder, elbow, or wrist motion. Skin is intact. Radial pulse is palpable. Normal capillary refill in fingers. Sensation is intact in radial, ulnar, and median nerve distributions. Glost Tile Shader strength is +5. No lymphadenopathy noted. Examination of left arm reveals no pain or deformity with shoulder, elbow, or wrist motion. He has moderate swelling around the elbow region. There is erythema from the proximal arm down to the mid forearm. There is no fluctuance noted. Skin is intact except for a superficial skin abrasion over the posterior elbow. Radial pulse is palpable. Normal capillary refill in fingers. Sensation is intact in radial, ulnar, and median nerve distributions. Glost Tile Shader strength is +5. No lymphadenopathy noted. Examination of left lower extremity reveals no pain or deformity with hip, knee , or ankle motion. Skin is intact. Sensation is intact in left foot. Dorsalis pedis pulse is palpable. Normal capillary refill and feet. Thigh and calf compartments are soft. No lymphadenopathy noted. +5 strength of ankle dorsiflexion and plantarflexion. Examination of right lower extremity reveals no pain or deformity with hip, knee , or ankle motion. Skin is intact. Sensation is intact in right foot. Dorsalis pedis pulse is palpable. Normal capillary refill and feet. Thigh and calf compartments are soft. No lymphadenopathy noted. +5 strength of ankle dorsiflexion and plantarflexion. Results - Labs Result Diagrams: 07/18/18 04:53 07/17/18 06:30 Labs: Laboratory Results - last 24 hr 07/17/18 07/17/18 07/17/18 06:30 06:30 11:45 CBC w Diff Slide review pending WBC 22.9 H RBC 4.43 L Hgb 13.7 D Hct 39.8 MCV 89.8 MCH 30.8 MCHC 34.3 RDW 12.4 Plt Count 154 D MPV 8.0 Neut % (Auto) 90.6 H Lymph % (Auto) 5.3 L [place] % (Auto) 3.9 Eos % (Auto) 0.1 Baso % (Auto) 0.1 Neut # (Auto) 20.8 H Lymph # (Auto) 1.2 [place] # (Auto) 0.9 Eos # (Auto) 0.0 Baso # (Auto) 0.0 WBC Differential . Differential Comment . Sodium 139 Potassium 3.9 Chloride 106 D Carbon Dioxide 22.6 Anion Gap 10 BUN 11 Creatinine 0.74 Estimated GFR Greater than 89 Random Glucose 109 H Lactic Acid Calcium 7.6 L D Total Bilirubin 1.5 H AST 16 ALT 22 Alkaline Phosphatase 57 Total Protein 5.5 L D Albumin 2.6 L D Vancomycin Trough 11.4 H 07/17/18 07/17/18 07/18/18 11:45 17:32 04:53 CBC w Diff WBC 21.2 H RBC 4.12 L Hgb 12.7 L Hct 37.0 L MCV 89.8 MCH 30.9 MCHC 34.4 RDW 13.4 Plt Count 147 L MPV 8.4 Neut % (Auto) 92.4 H Lymph % (Auto) 4.2 L [place] % (Auto) 3.4 Eos % (Auto) 0.0 Baso % (Auto) 0.0 Neut # (Auto) 19.6 H Lymph # (Auto) 0.9 L [place] # (Auto) 0.7 Eos # (Auto) 0.0 Baso # (Auto) 0.0 WBC Differential . Differential Comment Auto diff final Sodium Potassium Chloride Carbon Dioxide Anion Gap BUN Creatinine Estimated GFR Random Glucose Lactic Acid 2.2 H 1.9 Calcium Total Bilirubin AST ALT Alkaline Phosphatase Total Protein Albumin Vancomycin Trough - Diagnostic results Elbow CT: report reviewed, image reviewed Assessment and Plan - Assessment and Plan Jose Antonio had a small laceration on his left elbow. He separately developed significant cellulitis and infection. CT scan was negative for abscess. At this point I would recommend continued medical management. He will need to continue IV antibiotics. He has no pain with elbow motion currently and no signs of septic joint. If the swelling and erythema do not improve significantly over the next few days, he may benefit from MRI of left elbow to evaluate for possible abscess. At this time patient does not need surgical intervention. If he does develop an abscess he may need surgical irrigation and debridement. Patient is in agreement with this plan. I will continue to follow patient's progress. All questions were answered. A mid-level provider in my office (nurse practitioner or physician group fitness assistant department head) may see this patient on follow-up visits and continue to implement the objectives of this plan including: Starting or adjusting medications, injections , cast application, orthotics, brace application, physical therapy, radiological studies (including x-ray, MRI, CT, ultrasound, bone scan), vascular studies, neurologic studies, specialist consultation, and proceeding with surgical management, as appropriate.
[2018-07-18] MEDS: Timolol 0.5% Drops 5 ML Bottle EACH EYE SCH (10:02)
--- NOTE | 2018-07-18 10:19 | P.PNIM ---
Subjective Interval history: Complaint of poor appetite and nausea. Left elbow pain controlled. Reports redness has spread down to the wrist and hand area. Physical Exam Vital signs: Last Vital Signs Temp 97.8 F 07/18/18 08:00 Pulse 93 H 07/18/18 08:00 Resp 20 07/18/18 08:00 BP 121/71 07/18/18 08:00 Pulse Ox 97 07/18/18 08:00 Intake & Output 07/16/18 07/17/18 07/18/18 07/19/18 06:59 06:59 06:59 06:59 Intake Total 6282.5 / 6282.5 3613.0 / 3613.0 1614 / 1614 Output Total 500 / 500 Balance 6282.5 / 6282.5 3113.0 / 3113.0 1614 / 1614 Weight 77 kg 77.6 kg Narrative: GENERAL: This is a well-nourished, well-developed patient, in no apparent distress. CARDIOVASCULAR: Regular rate and rhythm RESPIRATORY: Clear to auscultation. Breath sounds equal bilaterally. No wheezes , rales, or rhonchi. GASTROINTESTINAL: Abdomen soft, non-tender, nondistended. Normal active bowel sounds MUSCULOSKELETAL: Extremities without clubbing, cyanosis, or edema. Left elbow with decreased range of motion secondary to pain and swelling. There is induration from the mid upper arm down into the forearm and now starting into the dorsum of the hand. There is no fluctuance on palpation. Redness has progressed slightly over the area of demarcation from last night. NEURO: Alert & Oriented x4 to person, place, time, situation. Moves all ext x4 Results Labs CBC & Chem 7: 07/18/18 04:53 07/17/18 06:30 Labs: Microbiology 07/16/18 09:40 Blood - Peripheral Aerobic Blood Culture - Preliminary No growth in 1 day 07/16/18 09:40 Blood - Peripheral Anaerobic Blood Culture - Preliminary No growth in 1 day 07/16/18 09:45 Blood - Peripheral Aerobic Blood Culture - Preliminary No growth in 1 day 07/16/18 09:45 Blood - Peripheral Anaerobic Blood Culture - Preliminary No growth in 1 day Assessment and Plan (1) Sepsis: Code(s): A41.9 - Sepsis, unspecified organism Status: Acute (2) Cellulitis: Code(s): L03.90 - Cellulitis, unspecified Status: Acute Plan This is a 22-year-old male patient with: Sepsis present on admission with leukocytosis and tachycardia Left elbow and upper extremity cellulitis -Patient complaint of abrasion to laceration to left elbow x 2 weeks ago. Worsened pain and swelling x 1 day with reported fever at home. -Blood cultures shows no growth to date. Currently on Azactam and Vancomycin and Flagyl, will discontinue Flagyl and clindamycin. Will obtain an infectious disease consultation Orthopedic surgery Dr. Mahan evaluate the patient and recommended continue IV antibiotics and no surgical intervention at this time. -US performed in ED did not show an abscess. -CT of left elbow reviewed showing diffuse subcutaneous swelling suggesting cellulitis. -Encourage extremity elevation. NauseaCompazine and Zofran as needed -Supportive care. And IV fluid hydration DVT Prophylaxis: No mechanical or pharmaceutical VTE prophalaxis administered due to patient's low risk assessment of VTE. Encouraged ambulation. Progress Note: Quality VTE Deep Vein Thrombosis/Pulmonary Embolism Present on Admission: No _ (1) Sepsis Qualifiers: Sepsis type: sepsis due to unspecified organism Qualified Code(s): A41.9 - Sepsis, unspecified organism (2) Cellulitis Qualifiers: Laterality: left Site of cellulitis: extremity Site of cellulitis of extremity: upper extremity Site of cellulitis of trunk: Qualified Code(s): L03.114 - Cellulitis of left upper limb
[2018-07-18] MEDS: Clindamycin 900 mg/NS Premix 900 MG/50 ML PIGGYBACK IV.SIG SCH ×2 (10:34→17:10)
[2018-07-18] MEDS ORDERED: Pharmacy Ordered Lab Info OTHER ONE ×2 (11:45→19:45)
[2018-07-18] MEDS: Sod Chloride 0.9% Inj 1,000 ML IV.CONT SCH ×2 (15:18→18:48)
--- NOTE | 2018-07-18 16:18 | MB ---
cc: Denzel Montoya MD DATE: 07/18/2018 REQUESTING PHYSICIAN: Yomaira Ling MD REASON FOR CONSULTATION: Cellulitis of the left arm. HISTORY OF PRESENT ILLNESS: This is a 22-year-old white male who scraped his left elbow approximately 2 weeks ago. The patient states that he noticed swelling of his left elbow 4 days ago and then after that, the left arm started to become erythematous beginning at the elbow just below and above and subsequently spreading up the arm and also down to the wrist. He presented to the emergency department on 07/16/2018 to be evaluated and on admission his temperature was 101.8 degrees. He states that his temperature at home was up to 102.6. The white count was also markedly elevated at 28.7. He was started on broad spectrum antibiotics. A CT scan of the left elbow showed diffuse subcutaneous swelling without deep soft tissue abscess. The patient's temperature has improved. He is currently on broad spectrum antibiotics. His white blood cell count has also improved, but remains markedly elevated. The patient denies current chills. He states that 4 days ago he developed chills and nausea and vomiting. He states that the pain in the elbow without pain medication is approximately 8/10 scale. He states that he does not recall any trauma to the elbow prior to beginning of the redness 4 days ago. Blood cultures have no growth in 2 days. There is no drainage or opening at the left elbow, but there is some superficial bruise at the elbow. PAST MEDICAL HISTORY: Suspected glaucoma. ALLERGIES: AMOXICILLIN. MEDICATIONS: 1. Vancomycin. 2. Clindamycin. 3. Aztreonam. 4. Toradol. 5. Compazine. 6. Tylenol. 7. Zofran. 8. Timoptic eyedrops. SOCIAL HISTORY: Positive tobacco use. Positive alcohol use. Positive marijuana use. FAMILY HISTORY: Noncontributory. REVIEW OF SYSTEMS: All systems have been reviewed and pertinent positives mentioned in history of present illness. PHYSICAL EXAMINATION: GENERAL: This is a well-developed male who was in no acute distress. He is awake, alert and oriented. VITAL SIGNS: Includes temperature 98.5, BP 131/65, respirations 20, heart rate 88. HEENT: Extraocular muscles intact. Pupils reactive to light. No icterus. Pharynx moist mucosa without lesions. NECK: Supple. No adenopathy or swelling. LUNGS: Clear to auscultation. HEART: Regular S1, S2, without murmurs. ABDOMEN: Bowel sounds present. Soft, nontender. RECTAL: Not performed. EXTREMITIES: Left arm is markedly swollen through and through including the upper arm from the upper humerus just below the shoulder down to the wrist and includes swelling of the dorsum of the hand. There is marked erythema which is confluent and the area is warm. It is tender to touch. Distal pulses are normal. No necrosis. EXTREMITIES: No clubbing, cyanosis or edema. SKIN: No diffuse rash. NEUROLOGIC: No gross focal findings. PSYCHIATRIC: The patient is calm and cooperative. LABORATORY DATA: WBC 21.2, platelets 147, hemoglobin 12.7 with 92% neutrophils. Creatinine 0.74, BUN 11, sodium 139. Liver function test normal. Toxicology screen positive for cannabinoids IMPRESSION: 1. Severe cellulitis of the left upper extremity. 2. ALLERGY TO AMOXICILLIN. RECOMMENDATIONS: Continue empiric treatment. The patient's temperature is improved and his white blood cell count is decreasing. His arm remains very severely erythematous and he is encouraged to elevate the arm during treatment. RECOMMENDATIONS: 1. Continue vancomycin. 2. Continue clindamycin. 3. Continue aztreonam. 4. Monitor response of the cellulitis. 5. Monitor white blood cell count. Thank you for this consultation. I will follow the patient's progress along with you. MD SANDRA Sanchez/carly , 03:54 PM , 04:05 PM
[2018-07-19] MEDS: Ketorolac Inj 30 MG/ML (IVP) Vial IV.PUSH PRN ×2 (01:21→10:40)
[2018-07-19] MEDS: Clindamycin 900 mg/NS Premix 900 MG/50 ML PIGGYBACK IV.SIG SCH ×3 (01:22→18:19)
[2018-07-19] MEDS: Sod Chloride 0.9% Inj 1,000 ML IV.CONT SCH ×2 (01:22→10:06)
[2018-07-19] MEDS: Aztreonam Inj 2 GM in Sodium Chloride 0.9% Inj 100 ML IV.SIG SCH ×2 (01:22→10:44)
[2018-07-19] MEDS: Vancomycin Inj 1,500 MG in Sodium Chlor 0.9% Inj 500 ML IV.SIG SCH ×3 (04:28→20:35)
[2018-07-19 05:49] LABS: Baso % (Auto) 0.1 % (0.0-2.0); Eos # (Auto) 0.2 th/mm3 (0.0-0.4); Hematocrit 36.5 % (39.0-51.0); Hemoglobin 12.9 gm/dL (13.0-17.0); Lymph # (Auto) 1.1 th/mm3 (1.0-4.8); Mean Corpuscular HGB Conc 35.4 % (32.0-36.0); Mean Corpuscular Hemoglobin 31.4 pg (27.0-34.0); Mean Corpuscular Volume 88.8 fL (80.0-100.0); Mean Platelet Volume 8.1 fL (7.0-11.0); Mono # (Auto) 0.6 th/mm3 (0.0-0.9); Mono % (Auto) 4.1 % (0.0-8.0); Neut # (Auto) 13.5 th/mm3 (1.8-7.7); Neut % (Auto) 87.8 % (16.0-70.0); Platelet Count 166 th/mm3 (150-450); Red Blood Count 4.11 mil/mm3 (4.50-5.90); Red Cell Distribution Width 13.7 % (11.6-17.2); White Blood Count 15.4 th/mm3 (4.0-11.0)
[2018-07-19 06:07] LABS: Anion Gap 8 meq/L (5-15); Blood Urea Nitrogen 12 mg/dL (7-18); Calcium 7.8 mg/dL (8.5-10.1); Carbon Dioxide 22.4 meq/L (21.0-32.0); Chloride 109 meq/L (98-107); Glomerular Filtration Rate Greater Than 89 mL/min (>89); Glucose,Random 92 mg/dL (74-106); Potassium 3.7 meq/L (3.5-5.1); Sodium 139 meq/L (136-145)
--- NOTE | 2018-07-19 07:05 | P.PNOP ---
Subjective Interval history: Jose Antonio continues to have swelling and erythema of his left arm. He has not had significant improvement with IV antibiotics. He has noticed that swelling has worsened since yesterday. Physical Exam Vital signs: Vital Signs 07/18/18 08:00 07/18/18 12:00 07/18/18 16:00 Temperature 97.8 F 98.5 F 99.8 F H Pulse Rate 93 H 88 108 H Respiratory Rate 20 20 20 Blood Pressure 121/71 131/65 124/60 Pulse Oximetry 97 100 07/18/18 20:00 07/19/18 01:20 07/19/18 04:51 Temperature 98.3 F 99.4 F Pulse Rate 104 H 103 H Respiratory Rate 20 20 18 Blood Pressure 124/70 117/63 Pulse Oximetry 98 97 Intake & Output 07/18/18 07/19/18 07/19/18 18:59 06:59 18:59 Intake Total 2329 / 2329 765 / 765 Balance 2329 / 2329 765 / 765 Intake: IV 2329 / 2329 765 / 765 NS Inj 1,000 ML @ 100 mls/hr IV 1000 / 1000 .CONT .Q10H REYNALDO Rx#:[id number] Azactam Inj 2 GM In NS Inj 100 100 / 100 200 / 200 ML @ 200 mls/hr IV.SIG Q8H REYNALDO Rx#:[id number] Cleocin 900 mg/NS Premix 900 mg 100 / 100 50 / 50 In 50 ml @ 100 mls/hr IV.SIG Q8H REYNALDO Rx#:[id number] Vancomycin Inj 1,500 MG In NS 1030 / 1030 515 / 515 Inj 500 ML @ 250 mls/hr IV.SIG Q8H REYNALDO Rx#:[id number] Flagyl 500 MG Inj 100 ML @ 100 99 / 99 mls/hr IV.SIG Q8H REYNALDO Rx#: [id number] Other: # Voids 1 Narrative: Patient is awake and alert. Examination of left arm reveals erythema from the shoulder to the hand. There is increased swelling of the arm, forearm, and hand. He has minimal pain with gentle shoulder, elbow, or wrist motion. There is warmth of the skin. Sensation is intact in all fingers. Results - Labs CBC & Chem 7: 07/19/18 04:54 07/19/18 04:54 Laboratory Results - last 24 hr 07/18/18 07/19/18 07/19/18 13:24 04:54 04:54 WBC 15.4 H RBC 4.11 L Hgb 12.9 L Hct 36.5 L MCV 88.8 MCH 31.4 MCHC 35.4 RDW 13.7 Plt Count 166 MPV 8.1 Neut % (Auto) 87.8 H Lymph % (Auto) 7.0 L [place] % (Auto) 4.1 Eos % (Auto) 1.0 Baso % (Auto) 0.1 Neut # (Auto) 13.5 H Lymph # (Auto) 1.1 [place]lin # (Auto) 0.6 Eos # (Auto) 0.2 Baso # (Auto) 0.0 WBC Differential . Differential Comment Auto diff final Sodium 139 Potassium 3.7 Chloride 109 H Carbon Dioxide 22.4 Anion Gap 8 BUN 12 Creatinine 0.69 Estimated GFR Greater than 89 Random Glucose 92 Calcium 7.8 L Vancomycin Trough 22.4 H Microbiology 07/16/18 09:40 Blood - Peripheral Aerobic Blood Culture - Preliminary No growth in 2 days 07/16/18 09:40 Blood - Peripheral Anaerobic Blood Culture - Preliminary No growth in 2 days 07/16/18 09:45 Blood - Peripheral Aerobic Blood Culture - Preliminary No growth in 2 days 07/16/18 09:45 Blood - Peripheral Anaerobic Blood Culture - Preliminary No growth in 2 days Assessment and Plan - Assessment and Plan Edward symptoms have worsened. He has been on IV antibiotics for 3 days without significant improvement of his erythema and swelling. MRI is pending of left elbow. Patient will need surgical irrigation and debridement if MRI shows abscess or fluid collection Continue n.p.o. until MRI is completed--possible surgery today or tomorrow The risk and benefits of surgery were discussed in depth with patient. The risk of surgery include bleeding, infection, injuries to arteries, nerves, or blood vessels, infection, wound complications, and need for further surgery. I also discussed medical complications including blood clots, pneumonia, stroke, heart attack, and . Informed consent was obtained and all questions were answered. A mid-level provider in my office (nurse practitioner or physician nutritional assistant) may see this patient on follow-up visits and continue to implement the objectives of this plan including: Starting or adjusting medications, injections , cast application, orthotics, brace application, physical therapy, radiological studies (including x-ray, MRI, CT, ultrasound, bone scan), vascular studies, neurologic studies, specialist consultation, and proceeding with surgical management, as appropriate.
[2018-07-19] MEDS ORDERED: Gadobutrol PF 2 MMOL/2 ML Vial (for RAD) IV.SIG ONE (09:28)
--- NOTE | 2018-07-19 09:49 | MR ---
EXAM DATE: 07/19/2018 9:33 AM EST AGE/SEX: 22 years / Male INDICATIONS: Abscess. CLINICAL DATA: This is the patient's initial encounter. Patient reports that signs and symptoms have been present for 3 days and indicates a pain score of 5/10. MEDICAL/SURGICAL HISTORY: None. None. COMPARISON: [facility], CT ELBOW LEFT W CONTRAST, 07/16/2018. . TECHNIQUE: Multiplanar, multisequence MRI examination was performed without contrast and after the i ntravenous administration of 8 ml Gadavist (gadobutrol) contrast as a single exam dose. FINDINGS: Bones: The osseous structures are in normal alignment. No evidence of fracture or bony edema. Joint Spaces: Small to moderate joint effusion is identified. Joint surfaces are otherwise intact. Th ere are no destructive bone changes. Tendons: The biceps, brachialis, and triceps tendons are intact. The common extensor and flexor tendo n origins are unremarkable. Ligaments: The radial and ulnar collateral ligaments are intact. Soft Tissues: Extensive soft tissue inflammation is identified surrounding the elbow and extending i nto the form and lower humeral region. Posterior to the elbow there is fluid coursing through the sof t tissues characteristic of a phlegmon without discrete mature abscess. Other: The neurovascular structures are intact. Post Contrast: There are no abnormal areas of enhancement in the marrow, muscle or soft tissues on i mages obtained after intravenous administration of gadolinium. CONCLUSION: 1. Soft tissue phlegmon predominantly along the posterior aspect of the elbow with fluid stranding t hroughout the soft tissues but no discrete mature abscess formation. 2. Small to moderate joint effusion. 3. No evidence of destructive bone changes or bone marrow edema. 4. Intact periarticular tendons and ligaments. Electronically signed by: Ramiro Underwood MD 07/19/2018 9:47 AM EST
[2018-07-19] MEDS: Timolol 0.5% Drops 5 ML Bottle EACH EYE SCH (09:53)
[2018-07-19] MEDS ORDERED: Pharmacy Ordered Lab Info OTHER ONE (11:45)
--- NOTE | 2018-07-19 15:13 | P.PNID ---
Subjective Remarks: Patient note pain in the left arm. Continues to have marked swelling. Low grade fever. Blood culture has no growth. This is a 22-year-old white male who scraped his left elbow approximately 2 weeks ago. The patient states that he noticed swelling of his left elbow 4 days ago and then after that, the left arm started to become erythematous beginning at the elbow just below and above and subsequently spreading up the arm and also down to the wrist. He presented to the emergency department on 07/16/2018 to be evaluated and on admission his temperature was 101.8 degrees. He states that his temperature at home was up to 102.6. The white count was also markedly elevated at 28.7. Lines: IV peripheral line intact. Past Medical History: PAST MEDICAL HISTORY: Suspected glaucoma. Allergies/Adverse Reactions: Allergies amoxicillin Allergy (Verified 07/16/18 09:19) Hives Objective Vital Signs 07/18/18 16:00 07/18/18 20:00 07/19/18 01:20 Temperature 99.8 F H 98.3 F 99.4 F Pulse Rate 108 H 104 H 103 H Respiratory Rate 20 20 20 Blood Pressure 124/60 124/70 117/63 Pulse Oximetry 98 97 07/19/18 04:00 07/19/18 04:51 07/19/18 08:00 Temperature 98.7 F 99.9 F H Pulse Rate 85 88 Respiratory Rate 20 18 20 Blood Pressure 126/75 143/85 H Pulse Oximetry 98 07/19/18 11:34 07/19/18 12:00 Temperature 98.3 F Pulse Rate 76 Respiratory Rate 16 20 Blood Pressure 138/85 Pulse Oximetry 97 Intake & Output 07/18/18 07/19/18 07/19/18 18:59 06:59 18:59 Intake Total 2329 / 2329 1400 / 1400 665 / 665 Balance 2329 / 2329 1400 / 1400 665 / 665 Weight 82.3 kg Intake: IV 2329 / 2329 1280 / 1280 665 / 665 NS Inj 1,000 ML @ 100 mls/hr IV 1000 / 1000 .CONT .Q10H REYNALDO Rx#:[id number] Azactam Inj 2 GM In NS Inj 100 100 / 100 200 / 200 100 / 100 ML @ 200 mls/hr IV.SIG Q8H REYNALDO Rx#:[id number] Cleocin 900 mg/NS Premix 900 mg 100 / 100 50 / 50 50 / 50 In 50 ml @ 100 mls/hr IV.SIG Q8H REYNALDO Rx#:[id number] Vancomycin Inj 1,500 MG In NS 1030 / 1030 1030 / 1030 515 / 515 Inj 500 ML @ 250 mls/hr IV.SIG Q8H REYNALDO Rx#:[id number] Flagyl 500 MG Inj 100 ML @ 100 99 / 99 mls/hr IV.SIG Q8H REYNALDO Rx#: [id number] Oral 120 / 120 Other: # Voids 1 07/16/18 09:40 Blood - Peripheral Aerobic Blood Culture - Preliminary No growth in 3 days 07/16/18 09:40 Blood - Peripheral Anaerobic Blood Culture - Preliminary No growth in 3 days 07/16/18 09:45 Blood - Peripheral Aerobic Blood Culture - Preliminary No growth in 3 days 07/16/18 09:45 Blood - Peripheral Anaerobic Blood Culture - Preliminary No growth in 3 days Lab - Hematology Results 07/18/18 07/19/18 04:53 04:54 WBC 21.2 H 15.4 H RBC 4.12 L 4.11 L Hgb 12.7 L 12.9 L Hct 37.0 L 36.5 L MCV 89.8 88.8 MCH 30.9 31.4 MCHC 34.4 35.4 RDW 13.4 13.7 Plt Count 147 L 166 MPV 8.4 8.1 Neut % (Auto) 92.4 H 87.8 H Lymph % (Auto) 4.2 L 7.0 L [place] % (Auto) 3.4 4.1 Eos % (Auto) 0.0 1.0 Baso % (Auto) 0.0 0.1 Neut # (Auto) 19.6 H 13.5 H Lymph # (Auto) 0.9 L 1.1 [place] # (Auto) 0.7 0.6 Eos # (Auto) 0.0 0.2 Baso # (Auto) 0.0 0.0 WBC Differential . . Differential Comment Auto diff final Auto diff final Lab - Chemistry Results 07/17/18 07/19/18 17:32 04:54 Sodium 139 Potassium 3.7 Chloride 109 H Carbon Dioxide 22.4 Anion Gap 8 BUN 12 Creatinine 0.69 Estimated GFR Greater than 89 Random Glucose 92 Lactic Acid 1.9 Calcium 7.8 L Imaging: ITS Impressions Elbow CT 07/16/18 00:00 CONCLUSION: 1. Diffuse subcutaneous swelling suggesting cellulitis. 2. No acute fracture, dislocation or other bony abnormality. Elbow MRI 07/19/18 00:00 CONCLUSION: 1. Soft tissue phlegmon predominantly along the posterior aspect of the elbow with fluid stranding throughout the soft tissues but no discrete mature abscess formation. 2. Small to moderate joint effusion. 3. No evidence of destructive bone changes or bone marrow edema. 4. Intact periarticular tendons and ligaments. Physical Exam: PHYSICAL EXAMINATION: GENERAL: No acute distress. Awake, alert and oriented. HEENT: Extraocular muscles intact. Pupils reactive to light. No icterus. Pharynx moist mucosa without lesions. NECK: Supple. No adenopathy or swelling. LUNGS: Clear to auscultation. HEART: Regular S1, S2, without murmurs. ABDOMEN: Bowel sounds present. Soft, nontender. EXTREMITIES: Left arm is still markedly swollen through and through including the upper arm from the upper humerus just below the shoulder down to the wrist and includes swelling of the dorsum of the hand. There is marked erythema which is confluent and the area is warm. It is tender to touch. Distal pulses are normal. No necrosis. EXTREMITIES: No clubbing, cyanosis or edema. SKIN: No diffuse rash. NEUROLOGIC: No gross focal findings. PSYCHIATRIC: Calm and cooperative. Assessment and Plan - Plan IMPRESSION: 1. Severe cellulitis of the left upper extremity. 2. ALLERGY TO AMOXICILLIN. RECOMMENDATIONS: 1. Continue vancomycin. 2. Continue clindamycin. 3. Change aztreonam to Meropenem. 4. Monitor response. 5. Monitor white blood cell count. 6. Elevate the left arm.
--- NOTE | 2018-07-19 15:47 | P.PNIM ---
Subjective Interval history: Reports continued left arm swelling and redness, currently pain controlled. Physical Exam Vital signs: Last Vital Signs Temp 99.4 F 07/19/18 15:32 Pulse 63 07/19/18 15:32 Resp 20 07/19/18 15:32 BP 135/85 07/19/18 15:32 Pulse Ox 98 07/19/18 15:32 Intake & Output 07/17/18 07/18/18 07/19/18 07/20/18 06:59 06:59 06:59 06:59 Intake Total 6282.5 / 6282.5 3613.0 / 3613.0 3729 / 3729 665 / 665 Output Total 500 / 500 Balance 6282.5 / 6282.5 3113.0 / 3113.0 3729 / 3729 665 / 665 Weight 77 kg 77.6 kg 82.3 kg Narrative: GENERAL: This is a well-nourished, well-developed patient, in no apparent distress. CARDIOVASCULAR: Regular rate and rhythm RESPIRATORY: Clear to auscultation. Breath sounds equal bilaterally. No wheezes , rales, or rhonchi. GASTROINTESTINAL: Abdomen soft, non-tender, nondistended. Normal active bowel sounds MUSCULOSKELETAL: Swelling from the left shoulder area down to the left hand there is left redness compared to yesterday however the swelling persists. He has limited range of motion of the left hand, neurovascularly intact of the left hand NEURO: Alert & Oriented x4 to person, place, time, situation. Moves all ext x4 Results Labs CBC & Chem 7: 07/22/18 07:37 07/21/18 06:22 Labs: Microbiology 07/16/18 09:40 Blood - Peripheral Aerobic Blood Culture - Preliminary No growth in 3 days 07/16/18 09:40 Blood - Peripheral Anaerobic Blood Culture - Preliminary No growth in 3 days 07/16/18 09:45 Blood - Peripheral Aerobic Blood Culture - Preliminary No growth in 3 days 07/16/18 09:45 Blood - Peripheral Anaerobic Blood Culture - Preliminary No growth in 3 days Imaging Imaging: Impressions Elbow MRI 07/19/18 00:00 CONCLUSION: 1. Soft tissue phlegmon predominantly along the posterior aspect of the elbow with fluid stranding throughout the soft tissues but no discrete mature abscess formation. 2. Small to moderate joint effusion. 3. No evidence of destructive bone changes or bone marrow edema. 4. Intact periarticular tendons and ligaments. Assessment and Plan (1) Sepsis: Code(s): A41.9 - Sepsis, unspecified organism Status: Acute (2) Cellulitis: Code(s): L03.90 - Cellulitis, unspecified Status: Acute Plan This is a 22-year-old male patient with: Sepsis present on admission with leukocytosis and tachycardia Left elbow and upper extremity cellulitis -Patient complaint of abrasion to laceration to left elbow x 2 weeks ago. Worsened pain and swelling x 1 day with reported fever at home. -Blood cultures shows no growth to date. Currently on Azactam and Vancomycin and clindamycin. Infectious disease Dr. Montoya discontinued Azactam today and started with meropenem Orthopedic surgery Dr. Mahan evaluate the patient and recommended continue IV antibiotics and obtain MRI of the upper extremity for evaluation. MRI shows small to moderate joint effusion and no discrete mature abscess formation. Defer need for surgical intervention Dr. Mahan. -Encourage extremity elevation. NauseaCompazine and Zofran as needed -Supportive care. And IV fluid hydration Leukocytosistrending down as compared to yesterday. DVT Prophylaxis: No mechanical or pharmaceutical VTE prophalaxis administered due to patient's low risk assessment of VTE. Encouraged ambulation. Discussed with mom at bedside. Progress Note: Quality VTE Deep Vein Thrombosis/Pulmonary Embolism Present on Admission: No _ (1) Cellulitis Qualifiers: Laterality: left Site of cellulitis: extremity Site of cellulitis of extremity: upper extremity Site of cellulitis of trunk: Qualified Code(s): L03.114 - Cellulitis of left upper limb (2) Sepsis Qualifiers: Sepsis type: sepsis due to unspecified organism Qualified Code(s): A41.9 - Sepsis, unspecified organism
[2018-07-19] MEDS: Meropenem Inj 2,000 MG in Sodium Chlor 0.9% Inj 100 ML IV.SIG SCH (16:17)
[2018-07-19] MEDS: Acetaminophen 325 MG Tablet PO PRN (18:48)
[2018-07-20] MEDS: Meropenem Inj 2,000 MG in Sodium Chlor 0.9% Inj 100 ML IV.SIG SCH ×3 (01:07→16:01)
[2018-07-20] MEDS: Clindamycin 900 mg/NS Premix 900 MG/50 ML PIGGYBACK IV.SIG SCH ×3 (01:11→17:18)
[2018-07-20] MEDS: Sod Chloride 0.9% Inj 1,000 ML IV.CONT SCH (01:12)
[2018-07-20] MEDS: Ketorolac Inj 30 MG/ML (IVP) Vial IV.PUSH PRN ×2 (02:00→08:30)
[2018-07-20] MEDS ORDERED: Chlorhexidine Gluconate 2% 1 Pack (2 Cloths) TOPICAL ONE (03:43)
[2018-07-20] MEDS ORDERED: Sodium Chlor 0.9% Inj 500 ML IV.SIG SCH (04:00)
[2018-07-20] MEDS: Vancomycin Inj 1,500 MG in Sodium Chlor 0.9% Inj 500 ML IV.SIG SCH ×3 (04:26→20:56)
[2018-07-20] MEDS ORDERED: Clindamycin Inj 900 MG/6 ML Vial ONE (07:01)
[2018-07-20] MEDS ORDERED: Morphine Inj 4 MG/ML Vial IV.PUSH PRN (07:40)
[2018-07-20] MEDS ORDERED: Post-op Orders (for Pharmacy) OTHER STA (07:40)
--- NOTE | 2018-07-20 07:46 | P.OP ---
- Preoperative Diagnosis (1) Septic olecranon bursitis of left elbow Date of procedure: 07/20/18 Procedure: Irrigation and debridement of left elbow with excision of olecranon bursitis Anesthesia: GETA Surgeon: Andrew Smith MD Nursery Rn: GONZALES Matthew PA-C The surgical procedure was assisted by my physician bookkeeper assistant. My P.A. presence was necessary throughout this case for the manipulation and positioning of the surgical extremity. My P.A. was assisting me throughout the duration of this procedure. The skill set of a physician bookkeeper assistant was medically necessary to complete this procedure. During the surgical case the surgical garment inspector was working at the back table and the physician bookkeeper assistant was directly assisting me. Operation and Findings: Patient was seen and evaluated preoperatively. Patient was found to have infection of the left arm and elbow. MRI revealed some fluid in the left olecranon bursa. Patient had significant swelling and erythema. Informed consent was obtained after detailed discussion of risk and benefits of surgery. Operative site was marked. Patient was brought to the operating room. IV sedation and GETA were administered by anesthesiologist. Operative arm was prepped with alcohol followed by Hibiclens and draped in usual sterile fashion. Timeout procedure was performed. Procedure began with a 3 incision over the olecranon bursa. Subcutaneous tissue dissected with Bovie. A pocket of purulent material was found in the olecranon bursa. The fluid collection tracked up the posterior aspect of the triceps. The incision was extended proximally.. Specimen was obtained for cultures and sensitivities. Curettes and rongeurs were now used to sharply debride the olecranon bursa. After excisional debridement was complete, the wound was thoroughly irrigated with sterile saline. At this point the wound was clean. Subcutaneous tissues closed with 3-0 PDS and skin was closed with 3- 0. A David drain was placed into the wound. Sterile dressings were applied. Patient was awakened and transferred to recovery in stable condition. Needle and sponge counts were correct
--- NOTE | 2018-07-20 07:48 | P.PNOP ---
Subjective Interval history: Edmaira has a 1 week history of left arm swelling and erythema. He has failed to have significant improvement with IV antibiotic's.. MRI revealed a small amount of fluid in the olecranon bursa. Status post left elbow I&D on 2017. Physical Exam Vital signs: Vital Signs 07/19/18 08:00 07/19/18 11:34 07/19/18 12:00 Temperature 99.9 F H 98.3 F Pulse Rate 88 76 Respiratory Rate 20 16 20 Blood Pressure 143/85 H 138/85 Pulse Oximetry 97 07/19/18 15:32 07/19/18 20:00 07/20/18 00:00 Temperature 99.4 F 99.1 F 97.8 F Pulse Rate 63 80 64 Respiratory Rate 20 20 20 Blood Pressure 135/85 133/62 131/89 Pulse Oximetry 98 96 99 07/20/18 01:07 07/20/18 04:00 07/20/18 07:34 Temperature 98.4 F Pulse Rate 75 Respiratory Rate 18 20 16 Blood Pressure 136/82 Pulse Oximetry 96 Intake & Output 07/19/18 07/20/18 07/20/18 18:59 06:59 18:59 Intake Total 2297 / 2297 665 / 665 515 / 515 Balance 2297 / 2297 665 / 665 515 / 515 Weight 85.6 kg Intake: IV 1815 / 1815 665 / 665 515 / 515 NS Inj 1,000 ML @ 100 mls/hr IV 1000 / 1000 .CONT .Q10H REY[facility]O Rx#:[id number] Azactam Inj 2 GM In NS Inj 100 100 / 100 ML @ 200 mls/hr IV.SIG Q8H RE[facility] Rx#:[id number] Cleocin 900 mg/NS Premix 900 mg 100 / 100 50 / 50 In 50 ml @ 100 mls/hr IV.SIG Q8H RE[facility]NA[facility]O Rx#:[id number] Merrem Inj 2,000 MG In NS Inj 100 / 100 100 / 100 100 ML @ 200 mls/hr IV.SIG Q8H RE[facility]NA[facility]O Rx#:[id number] Vancomycin Inj 1,500 MG In NS 515 / 515 515 / 515 515 / 515 Inj 500 ML @ 250 mls/hr IV.SIG Q8H REYNALDO Rx#:[id number] Oral 482 / 482 Other: # Voids 3 Narrative: Patient is awake and alert. Moderate swelling and erythema of the left arm and forearm. Surgical dressings in place. Neurovascular intact left hand. Results - Labs CBC & Chem 7: 07/19/18 04:54 07/19/18 04:54 Laboratory Results - last 24 hr 07/19/18 10:55 Vancomycin Trough 16.0 H Microbiology 07/16/18 09:40 Blood - Peripheral Aerobic Blood Culture - Preliminary No growth in 3 days 07/16/18 09:40 Blood - Peripheral Anaerobic Blood Culture - Preliminary No growth in 3 days 07/16/18 09:45 Blood - Peripheral Aerobic Blood Culture - Preliminary No growth in 3 days 07/16/18 09:45 Blood - Peripheral Anaerobic Blood Culture - Preliminary No growth in 3 days - Imaging Impressions Elbow MRI 07/19/18 00:00 CONCLUSION: 1. Soft tissue phlegmon predominantly along the posterior aspect of the elbow with fluid stranding throughout the soft tissues but no discrete mature abscess formation. 2. Small to moderate joint effusion. 3. No evidence of destructive bone changes or bone marrow edema. 4. Intact periarticular tendons and ligaments. Assessment and Plan - Assessment and Plan Status post left elbow I&D with excision of olecranon bursa on 07/20/2018 Continue IV antibiotic's per infectious disease Change dressing and remove [place] drain on postop day #3 OT consult for elbow range of motion.
[2018-07-20] MEDS ORDERED: fentaNYL Citrate Inj 100 MCG/2 ML Ampul ONE (08:04)
--- NOTE | 2018-07-20 08:04 | P.PNOP ---
Subjective Interval history: Transferred to PACU in stable condition Physical Exam Vital signs: Vital Signs 07/19/18 11:34 07/19/18 12:00 07/19/18 15:32 Temperature 98.3 F 99.4 F Pulse Rate 76 63 Respiratory Rate 16 20 20 Blood Pressure 138/85 135/85 Pulse Oximetry 97 98 07/19/18 20:00 07/20/18 00:00 07/20/18 01:07 Temperature 99.1 F 97.8 F Pulse Rate 80 64 Respiratory Rate 20 20 18 Blood Pressure 133/62 131/89 Pulse Oximetry 96 99 07/20/18 04:00 07/20/18 07:34 Temperature 98.4 F Pulse Rate 75 Respiratory Rate 20 16 Blood Pressure 136/82 Pulse Oximetry 96 Intake & Output 07/19/18 07/20/18 07/20/18 18:59 06:59 18:59 Intake Total 2297 / 2297 665 / 665 515 / 515 Balance 2297 / 2297 665 / 665 515 / 515 Weight 85.6 kg Intake: IV 1815 / 1815 665 / 665 515 / 515 NS Inj 1,000 ML @ 100 mls/hr IV 1000 / 1000 .CONT .Q10H REYNALDO Rx#:[id number] Azactam Inj 2 GM In NS Inj 100 100 / 100 ML @ 200 mls/hr IV.SIG Q8H RE[facility]NALDO Rx#:[id number] Cleocin 900 mg/NS Premix 900 mg 100 / 100 50 / 50 In 50 ml @ 100 mls/hr IV.SIG Q8H REYNALDO Rx#:[id number] Merrem Inj 2,000 MG In NS Inj 100 / 100 100 / 100 100 ML @ 200 mls/hr IV.SIG Q8H REYNALDO Rx#:[id number] Vancomycin Inj 1,500 MG In NS 515 / 515 515 / 515 515 / 515 Inj 500 ML @ 250 mls/hr IV.SIG Q8H REYNALDO Rx#:[id number] Oral 482 / 482 Other: # Voids 3 Narrative: Right upper extremity clean dry dressings intact. Moderate swelling both proximal and distal to the elbow. Intact distal pulses good capillary refills. Results - Labs CBC & Chem 7: 07/19/18 04:54 07/19/18 04:54 Laboratory Results - last 24 hr 07/19/18 10:55 Vancomycin Trough 16.0 H Microbiology 07/16/18 09:40 Blood - Peripheral Aerobic Blood Culture - Preliminary No growth in 3 days 07/16/18 09:40 Blood - Peripheral Anaerobic Blood Culture - Preliminary No growth in 3 days 07/16/18 09:45 Blood - Peripheral Aerobic Blood Culture - Preliminary No growth in 3 days 07/16/18 09:45 Blood - Peripheral Anaerobic Blood Culture - Preliminary No growth in 3 days - Imaging Impressions Elbow MRI 07/19/18 00:00 CONCLUSION: 1. Soft tissue phlegmon predominantly along the posterior aspect of the elbow with fluid stranding throughout the soft tissues but no discrete mature abscess formation. 2. Small to moderate joint effusion. 3. No evidence of destructive bone changes or bone marrow edema. 4. Intact periarticular tendons and ligaments. Assessment and Plan - Assessment and Plan Status post left elbow I&D with excision of olecranon bursa on 07/20/2018 Continue IV antibiotic's per infectious disease Change dressing and remove [place] drain on postop day #3 OT consult for elbow range of motion.
[2018-07-20] MEDS: Senna/Docusate Sodium 8.6/50 MG Tablet PO SCH ×2 (09:07→21:02)
[2018-07-20] MEDS ORDERED: MethylPREDNISolone Sod Succinate Inj 40 MG/ML Vial IV.PUSH ONE (09:28)
[2018-07-20] MEDS: Timolol 0.5% Drops 5 ML Bottle EACH EYE SCH (10:03)
--- NOTE | 2018-07-20 11:29 | P.PNIM ---
Subjective Interval history: Reports he feels his throat is swelling after the surgery no significant discomfort. No active shortness of breath. Left elbow pain better. Still states the redness and swelling persisted prior to going to surgery. Physical Exam Vital signs: Last Vital Signs Temp 97.7 F 07/20/18 08:50 Pulse 56 L 07/20/18 08:50 Resp 17 07/20/18 08:50 BP 138/83 07/20/18 08:50 Pulse Ox 93 L 07/20/18 08:50 Intake & Output 07/18/18 07/19/18 07/20/18 07/21/18 06:59 06:59 06:59 06:59 Intake Total 3613.0 / 3613.0 3729 / 3729 2962 / 2962 615 / 615 Output Total 500 / 500 Balance 3113.0 / 3113.0 3729 / 3729 2962 / 2962 615 / 615 Weight 77.6 kg 82.3 kg 85.6 kg Constitutional no acute distress Routine HEENT Exam Head: Present normocephalic and atraumatic Detailed ENT Exam Oropharynx: Present uvular swelling and lesions (Reports some red spots over the upper palate and oropharynx); Absent ulceration Oral mucosa: Present moist Routine Respiratory Exam Present CTA bilaterally Routine Cardiovascular Exam Present RRR Routine Abdominal Exam Present soft and normoactive bowel sounds; Absent tenderness and distended Routine Extremities Exam Present cyanosis, clubbing and edema Comments: Left upper arm with bandages clean dry and intact with some redness over the upper arm and induration no fluctuance significant swelling still in the left hand with no redness over the area, Zachariah bandage intact. Routine Neurological Exam Present alert and oriented X3 Results Labs CBC & Chem 7: 07/19/18 04:54 07/19/18 04:54 Labs: Microbiology 07/16/18 09:40 Blood - Peripheral Aerobic Blood Culture - Preliminary No growth in 4 days 07/16/18 09:40 Blood - Peripheral Anaerobic Blood Culture - Preliminary No growth in 4 days 07/16/18 09:45 Blood - Peripheral Aerobic Blood Culture - Preliminary No growth in 4 days 07/16/18 09:45 Blood - Peripheral Anaerobic Blood Culture - Preliminary No growth in 4 days Procedures Procedures: 07/20 irrigation and debridement left elbow with excision of the olecranon bursitis with Dr. Mahan Assessment and Plan (1) Sepsis: Code(s): A41.9 - Sepsis, unspecified organism Status: Acute (2) Cellulitis: Code(s): L03.90 - Cellulitis, unspecified Status: Acute Plan This is a 22-year-old male patient with: Sepsis present on admission with leukocytosis and tachycardia Left elbow and upper extremity cellulitis -Patient complaint of abrasion to laceration to left elbow x 2 weeks ago. Worsened pain and swelling x 1 day with reported fever at home. -Blood cultures shows no growth to date. Wound cultures from today's debridement currently pending Currently on meropenem and Vancomycin and clindamycin per infectious disease Dr. Montoya Status post I&D of the left elbow with excision of the olecranon bursitis with orthopedic surgery Dr. Mahan todaycontinue postoperative care, pain control -Encourage extremity elevation. NauseaCompazine and Zofran as needed -Supportive care. And IV fluid hydration Leukocytosisrepeat CBC today Oropharynx swelling with uvula swelling post surgery and post intubation-we will monitor, no active signs of respiratory distress at this time we will give a dose of Benadryl and Solu-Medrol DVT Prophylaxis: No mechanical or pharmaceutical VTE prophalaxis administered due to patient's low risk assessment of VTE. Encouraged ambulation. Discussed with mom at bedside. Progress Note: Quality VTE Deep Vein Thrombosis/Pulmonary Embolism Present on Admission: No _ (1) Sepsis Qualifiers: Sepsis type: sepsis due to unspecified organism Qualified Code(s): A41.9 - Sepsis, unspecified organism (2) Cellulitis Qualifiers: Laterality: left Site of cellulitis: extremity Site of cellulitis of extremity: upper extremity Site of cellulitis of trunk: Qualified Code(s): L03.114 - Cellulitis of left upper limb
[2018-07-20] MEDS ORDERED: Phenol 1.4% 180 ML Spray Bottle OROPHARYNG PRN (12:11)
[2018-07-20 16:17] LABS: Baso % (Auto) 0.1 % (0.0-2.0); Eos % (Auto) 0.1 % (0.0-4.0); Hematocrit 39.1 % (39.0-51.0); Hemoglobin 13.8 gm/dL (13.0-17.0); Lymph # (Auto) 0.6 th/mm3 (1.0-4.8); Lymph % (Auto) 4.1 % (9.0-44.0); Mean Corpuscular HGB Conc 35.3 % (32.0-36.0); Mean Corpuscular Hemoglobin 31.4 pg (27.0-34.0); Mean Platelet Volume 7.7 fL (7.0-11.0); Mono # (Auto) 0.3 th/mm3 (0.0-0.9); Mono % (Auto) 1.7 % (0.0-8.0); Neut # (Auto) 14.1 th/mm3 (1.8-7.7); Platelet Count 266 th/mm3 (150-450); Red Blood Count 4.39 mil/mm3 (4.50-5.90); Red Cell Distribution Width 13.9 % (11.6-17.2)
[2018-07-21] MEDS: Meropenem Inj 2,000 MG in Sodium Chlor 0.9% Inj 100 ML IV.SIG SCH ×4 (01:38→23:51)
[2018-07-21] MEDS: Clindamycin 900 mg/NS Premix 900 MG/50 ML PIGGYBACK IV.SIG SCH ×3 (01:45→17:58)
[2018-07-21] MEDS: Vancomycin Inj 1,500 MG in Sodium Chlor 0.9% Inj 500 ML IV.SIG SCH ×3 (04:27→21:13)
[2018-07-21 07:08] LABS: Baso % (Auto) 0.2 % (0.0-2.0); Eos % (Auto) 0.2 % (0.0-4.0); Hematocrit 36.3 % (39.0-51.0); Hemoglobin 12.2 gm/dL (13.0-17.0); Lymph # (Auto) 1.8 th/mm3 (1.0-4.8); Lymph % (Auto) 14.4 % (9.0-44.0); Mean Corpuscular HGB Conc 33.7 % (32.0-36.0); Mean Corpuscular Hemoglobin 30.5 pg (27.0-34.0); Mean Corpuscular Volume 90.5 fL (80.0-100.0); Mean Platelet Volume 7.5 fL (7.0-11.0); Mono # (Auto) 0.9 th/mm3 (0.0-0.9); Mono % (Auto) 7.2 % (0.0-8.0); Neut # (Auto) 9.9 th/mm3 (1.8-7.7); Platelet Count 239 th/mm3 (150-450); Red Blood Count 4.01 mil/mm3 (4.50-5.90); Red Cell Distribution Width 13.7 % (11.6-17.2); White Blood Count 12.6 th/mm3 (4.0-11.0)
[2018-07-21 07:31] LABS: Anion Gap 7 meq/L (5-15); Blood Urea Nitrogen 7 mg/dL (7-18); Calcium 7.7 mg/dL (8.5-10.1); Carbon Dioxide 26.1 meq/L (21.0-32.0); Chloride 107 meq/L (98-107); Glomerular Filtration Rate Greater Than 89 mL/min (>89); Glucose,Random 118 mg/dL (74-106); Potassium 3.3 meq/L (3.5-5.1); Sodium 140 meq/L (136-145)
--- NOTE | 2018-07-21 08:52 | P.PNOP ---
Subjective Interval history: No complaints. Mother at bedside. Elevating left arm Physical Exam Vital signs: Vital Signs 07/20/18 12:00 07/20/18 16:00 07/20/18 20:00 Temperature 98.5 F 99.2 F 98.4 F Pulse Rate 70 59 L 78 Respiratory Rate 20 20 20 Blood Pressure 143/65 H 146/80 H Pulse Oximetry 94 L 96 95 07/21/18 00:00 07/21/18 04:00 07/21/18 08:00 Temperature 98.6 F 98.3 F 97.7 F Pulse Rate 70 68 95 H Respiratory Rate 20 20 20 Blood Pressure 128/61 140/78 124/67 Pulse Oximetry 95 90 L 100 Intake & Output 07/20/18 07/21/18 07/21/18 18:59 06:59 18:59 Intake Total 1330 / 1330 2565 / 2565 Balance 1330 / 1330 2565 / 2565 Weight 83.8 kg Intake: IV 1330 / 1330 665 / 665 Cleocin 900 mg/NS Premix 900 mg 100 / 100 50 / 50 In 50 ml @ 100 mls/hr IV.SIG Q8H REYNALDO Rx#:[id number] Merrem Inj 2,000 MG In NS Inj 200 / 200 100 / 100 100 ML @ 200 mls/hr IV.SIG Q8H REYNALDO Rx#:[id number] Vancomycin Inj 1,500 MG In NS 1030 / 1030 515 / 515 Inj 500 ML @ 250 mls/hr IV.SIG Q8H REYNALDO Rx#:[id number] Oral 1900 / 1900 Other: Date of Last Bowel Movement 07/20/18 # Bowel Movements 1 Narrative: Moderate swelling left arm including hand. Sensation normal. Stiffness of his fingers. Dressing dry Results - Labs CBC & Chem 7: 07/21/18 06:22 07/21/18 06:22 Laboratory Results - last 24 hr 07/20/18 07/21/18 07/21/18 15:41 06:22 06:22 WBC 15.0 H 12.6 H RBC 4.39 L 4.01 L Hgb 13.8 12.2 L Hct 39.1 36.3 L MCV 89.0 90.5 MCH 31.4 30.5 MCHC 35.3 33.7 RDW 13.9 13.7 Plt Count 266 D 239 MPV 7.7 7.5 Neut % (Auto) 94.0 H 78.0 H Lymph % (Auto) 4.1 L 14.4 [place] % (Auto) 1.7 7.2 Eos % (Auto) 0.1 0.2 Baso % (Auto) 0.1 0.2 Neut # (Auto) 14.1 H 9.9 H Lymph # (Auto) 0.6 L 1.8 [place] # (Auto) 0.3 0.9 Eos # (Auto) 0.0 0.0 Baso # (Auto) 0.0 0.0 WBC Differential . . Differential Comment Auto diff final Auto diff final Sodium 140 Potassium 3.3 L Chloride 107 Carbon Dioxide 26.1 Anion Gap 7 BUN 7 Creatinine 0.67 Estimated GFR Greater than 89 Random Glucose 118 H Calcium 7.7 L Microbiology 07/20/18 07:32 Tissue - Elbow Fungal Smear - Final No fungal elements seen 07/20/18 07:32 Tissue - Elbow Fungal Smear - Final No fungal elements seen 07/20/18 07:32 Tissue - Elbow Gram Stain - Final 07/20/18 07:32 Tissue - Elbow Gram Stain - Final 07/16/18 09:40 Blood - Peripheral Aerobic Blood Culture - Preliminary No growth in 4 days 07/16/18 09:40 Blood - Peripheral Anaerobic Blood Culture - Preliminary No growth in 4 days 07/16/18 09:45 Blood - Peripheral Aerobic Blood Culture - Preliminary No growth in 4 days 07/16/18 09:45 Blood - Peripheral Anaerobic Blood Culture - Preliminary No growth in 4 days - Procedures 07/20 irrigation and debridement left elbow with excision of the olecranon bursitis with Dr. Mahan Assessment and Plan - Assessment and Plan Cellulitis left arm. Abscess left elbow/olecranon bursa. Surgery: Status post left elbow I&D with excision of olecranon bursa: POD #1 () Continue IV antibiotic's per infectious disease Change dressing and remove [place] drain on postop day #3 OT consult for elbow range of motion. Monitor cultures, negative so far. WBC still elevated
[2018-07-21] MEDS: Senna/Docusate Sodium 8.6/50 MG Tablet PO SCH ×2 (09:07→23:56)
[2018-07-21] MEDS: Timolol 0.5% Drops 5 ML Bottle EACH EYE SCH (09:08)
[2018-07-21] MEDS: Ketorolac Inj 30 MG/ML (IVP) Vial IV.PUSH PRN (15:45)
--- NOTE | 2018-07-21 16:19 | P.PNIM ---
Subjective Interval history: Patient reports he is feeling ok today. Pain is controlled. Still has significant swelling of the hand but neurovascularly intact. Physical Exam Vital signs: Vital Signs 07/20/18 20:00 07/21/18 00:00 07/21/18 04:00 Temperature 98.4 F 98.6 F 98.3 F Pulse Rate 78 70 68 Respiratory Rate 20 20 20 Blood Pressure 146/80 H 128/61 140/78 Pulse Oximetry 95 95 90 L 07/21/18 08:00 07/21/18 12:00 Temperature 97.7 F 98.2 F Pulse Rate 95 H 68 Respiratory Rate 20 20 Blood Pressure 124/67 147/100 H Pulse Oximetry 100 96 Intake & Output 07/20/18 07/21/18 07/21/18 18:59 06:59 18:59 Intake Total 1330 / 1330 2565 / 2565 1959 / 1959 Balance 1330 / 1330 2565 / 2565 1959 / 1959 Weight 83.8 kg Intake: IV 1330 / 1330 665 / 665 1180 / 1180 Cleocin 900 mg/NS Premix 900 mg 100 / 100 50 / 50 50 / 50 In 50 ml @ 100 mls/hr IV.SIG Q8H RE[facility] Rx#:[id number] Merrem Inj 2,000 MG In NS Inj 200 / 200 100 / 100 100 / 100 100 ML @ 200 mls/hr IV.SIG Q8H REYNALDO Rx#:[id number] Vancomycin Inj 1,500 MG In NS 1030 / 1030 515 / 515 1030 / 1030 Inj 500 ML @ 250 mls/hr IV.SIG Q8H REYNALDO Rx#:[id number] Oral 1900 / 1900 780 / 780 Other: Date of Last Bowel Movement 07/20/18 07/21/18 # Bowel Movements 1 1 Narrative: GENERAL: Patient in no acute distress. Sitting up in bed. NECK: Supple, trachea midline. No JVD or lymphadenopathy. CARDIOVASCULAR: Regular rate and rhythm without murmurs, gallops, or rubs. RESPIRATORY: Breath sounds equal bilaterally. No accessory muscle use. GASTROINTESTINAL: Abdomen soft, non-tender, nondistended. MUSCULOSKELETAL: Left arm is wrapped from above the elbow to the wrist. Hand is edematous. Neurovascularly intact distally. BACK: Nontender without obvious deformity. No CVA tenderness. Results - Labs CBC & Chem 7: 07/21/18 06:22 07/21/18 06:22 Laboratory Results - last 24 hr 07/20/18 07/21/18 07/21/18 15:41 06:22 06:22 WBC 15.0 H 12.6 H RBC 4.39 L 4.01 L Hgb 13.8 12.2 L Hct 39.1 36.3 L MCV 89.0 90.5 MCH 31.4 30.5 MCHC 35.3 33.7 RDW 13.9 13.7 Plt Count 266 D 239 MPV 7.7 7.5 Neut % (Auto) 94.0 H 78.0 H Lymph % (Auto) 4.1 L 14.4 [place] % (Auto) 1.7 7.2 Eos % (Auto) 0.1 0.2 Baso % (Auto) 0.1 0.2 Neut # (Auto) 14.1 H 9.9 H Lymph # (Auto) 0.6 L 1.8 [place] # (Auto) 0.3 0.9 Eos # (Auto) 0.0 0.0 Baso # (Auto) 0.0 0.0 WBC Differential . . Differential Comment Auto diff final Auto diff final Sodium 140 Potassium 3.3 L Chloride 107 Carbon Dioxide 26.1 Anion Gap 7 BUN 7 Creatinine 0.67 Estimated GFR Greater than 89 Random Glucose 118 H Calcium 7.7 L Microbiology 07/20/18 07:32 Tissue - Elbow Gram Stain - Final 07/20/18 07:32 Tissue - Elbow Wound Culture - Preliminary No growth in 24 hours 07/20/18 07:32 Tissue - Elbow Gram Stain - Final 07/20/18 07:32 Tissue - Elbow Wound Culture - Preliminary No growth in 24 hours 07/20/18 07:32 Tissue - Elbow Acid Fast Bacilli Smear - Final No acid fast bacilli seen 07/20/18 07:32 Tissue - Elbow Acid Fast Bacilli Smear - Final No acid fast bacilli seen 07/16/18 09:40 Blood - Peripheral Aerobic Blood Culture - Final No growth in 5 days 07/16/18 09:40 Blood - Peripheral Anaerobic Blood Culture - Final No growth in 5 days 07/16/18 09:45 Blood - Peripheral Aerobic Blood Culture - Final No growth in 5 days 07/16/18 09:45 Blood - Peripheral Anaerobic Blood Culture - Final No growth in 5 days 07/20/18 07:32 Tissue - Elbow Fungal Smear - Final No fungal elements seen 07/20/18 07:32 Tissue - Elbow Fungal Smear - Final No fungal elements seen - Procedures 07/20 irrigation and debridement left elbow with excision of the olecranon bursitis with Dr. Mahan Assessment and Plan - Assessment (1) Sepsis Code(s): A41.9 - Sepsis, unspecified organism Status: Acute (2) Cellulitis Code(s): L03.90 - Cellulitis, unspecified Status: Acute - Plan 22-year-old male patient with: Sepsis present on admission with leukocytosis and tachycardia Left elbow and upper extremity cellulitis -Patient complaint of abrasion to laceration to left elbow x 2 weeks ago. Worsened pain and swelling x 1 day with reported fever at home. -Blood cultures shows no growth to date. Wound cultures pending. So far negative. Currently on meropenem and Vancomycin and clindamycin per infectious disease Dr. Montoya Status post I&D of the left elbow with excision of the olecranon bursitis with orthopedic surgery Dr. Mahan on 07/20/18. [place] in place -Encourage extremity elevation. NauseaResolved -Supportive care. Antiemetics as needed. DVT Prophylaxis: No mechanical or pharmaceutical VTE prophalaxis administered due to patient's low risk assessment of VTE. Encouraged ambulation. Discussed with mom at bedside. Discharge Planning: When cleared by Orthopedics and ID. (1) Sepsis Qualifiers: Sepsis type: sepsis due to unspecified organism Qualified Code(s): A41.9 - Sepsis, unspecified organism (2) Cellulitis Qualifiers: Site of cellulitis: extremity Site of cellulitis of extremity: upper extremity Laterality: left Qualified Code(s): L03.114 - Cellulitis of left upper limb
[2018-07-21] MEDS: Sod Chloride 0.9% Inj 1,000 ML IV.CONT SCH ×2 (18:30→21:21)
[2018-07-22] MEDS: Clindamycin 900 mg/NS Premix 900 MG/50 ML PIGGYBACK IV.SIG SCH ×3 (01:18→18:35)
[2018-07-22] MEDS: Vancomycin Inj 1,500 MG in Sodium Chlor 0.9% Inj 500 ML IV.SIG SCH ×3 (04:22→19:41)
--- NOTE | 2018-07-22 07:59 | P.PNOP ---
Subjective Interval history: No complaints. Mother at bedside. Pain well controlled Physical Exam Vital signs: Vital Signs 07/21/18 08:00 07/21/18 12:00 07/21/18 16:00 Temperature 97.7 F 98.2 F 98.0 F Pulse Rate 95 H 68 77 Respiratory Rate 20 20 18 Blood Pressure 124/67 147/100 H 130/66 Pulse Oximetry 100 96 97 07/21/18 20:00 07/22/18 00:00 07/22/18 04:00 Temperature 98.4 F 97.0 F L 99.4 F Pulse Rate 76 70 75 Respiratory Rate 20 20 20 Blood Pressure 143/73 H 142/74 H 148/76 H Pulse Oximetry 96 96 95 Intake & Output 07/21/18 07/22/18 07/22/18 18:59 06:59 18:59 Intake Total 2109 / 2109 1145 / 1145 Balance 2109 / 2109 1145 / 1145 Weight 77 kg Intake: IV 1330 / 1330 665 / 665 Cleocin 900 mg/NS Premix 900 mg 100 / 100 50 / 50 In 50 ml @ 100 mls/hr IV.SIG Q8H RE[facility] Rx#:[id number] Merrem Inj 2,000 MG In NS Inj 200 / 200 100 / 100 100 ML @ 200 mls/hr IV.SIG Q8H REYNALDO Rx#:[id number] Vancomycin Inj 1,500 MG In NS 1030 / 1030 515 / 515 Inj 500 ML @ 250 mls/hr IV.SIG Q8H RE[facility]NALDO Rx#:[id number] Oral 780 / 780 480 / 480 Other: # Voids 4 Date of Last Bowel Movement 07/21/18 07/21/18 # Bowel Movements 1 Narrative: Dressing dry. Zachariah wrap entire left arm. Swelling decreasing. Stiffness of fingers. Sensation almost normal. Results - Labs CBC & Chem 7: 07/21/18 06:22 07/21/18 06:22 Microbiology 07/20/18 07:32 Tissue - Elbow Gram Stain - Final 07/20/18 07:32 Tissue - Elbow Wound Culture - Preliminary No growth in 24 hours 07/20/18 07:32 Tissue - Elbow Gram Stain - Final 07/20/18 07:32 Tissue - Elbow Wound Culture - Preliminary No growth in 24 hours 07/20/18 07:32 Tissue - Elbow Acid Fast Bacilli Smear - Final No acid fast bacilli seen 07/20/18 07:32 Tissue - Elbow Acid Fast Bacilli Smear - Final No acid fast bacilli seen 07/16/18 09:40 Blood - Peripheral Aerobic Blood Culture - Final No growth in 5 days 07/16/18 09:40 Blood - Peripheral Anaerobic Blood Culture - Final No growth in 5 days 07/16/18 09:45 Blood - Peripheral Aerobic Blood Culture - Final No growth in 5 days 07/16/18 09:45 Blood - Peripheral Anaerobic Blood Culture - Final No growth in 5 days - Procedures 07/20 irrigation and debridement left elbow with excision of the olecranon bursitis with Dr. Mahan Assessment and Plan - Assessment and Plan Cellulitis left arm. Abscess left elbow/olecranon bursa. Surgery: Status post left elbow I&D with excision of olecranon bursa: POD #2 () Continue IV antibiotic's per infectious disease Change dressing and remove [place] drain on postop day #3 OT consult for elbow range of motion. Monitor cultures, negative so far.
[2018-07-22 08:07] LABS: Hematocrit 41.6 % (39.0-51.0); Hemoglobin 14.5 gm/dL (13.0-17.0); Mean Corpuscular HGB Conc 34.8 % (32.0-36.0); Mean Corpuscular Hemoglobin 30.8 pg (27.0-34.0); Mean Corpuscular Volume 88.5 fL (80.0-100.0); Platelet Count 375 th/mm3 (150-450); White Blood Count 13.5 th/mm3 (4.0-11.0)
[2018-07-22] MEDS: Sod Chloride 0.9% Inj 1,000 ML IV.CONT SCH (09:20)
[2018-07-22] MEDS: Meropenem Inj 2,000 MG in Sodium Chlor 0.9% Inj 100 ML IV.SIG SCH ×2 (09:21→16:57)
[2018-07-22] MEDS: Timolol 0.5% Drops 5 ML Bottle EACH EYE SCH (09:22)
[2018-07-22] MEDS: Senna/Docusate Sodium 8.6/50 MG Tablet PO SCH (09:22)
--- NOTE | 2018-07-22 16:37 | P.PNIM ---
Subjective Interval history: Patient reports he is feeling okay today. Pain is controlled. Physical Exam Vital signs: Vital Signs 07/21/18 20:00 07/22/18 00:00 07/22/18 04:00 Temperature 98.4 F 97.0 F L 99.4 F Pulse Rate 76 70 75 Respiratory Rate 20 20 20 Blood Pressure 143/73 H 142/74 H 148/76 H Pulse Oximetry 96 96 95 07/22/18 08:00 07/22/18 12:00 Temperature 98.6 F 98.3 F Pulse Rate 59 L 66 Respiratory Rate 20 20 Blood Pressure 146/67 H 143/79 H Pulse Oximetry 97 95 Intake & Output 07/21/18 07/22/18 07/22/18 18:59 06:59 18:59 Intake Total 2109 1145 / 1145 1180 / 1180 Balance 2109 1145 / 1145 1180 / 1180 Weight 77 kg Intake: IV 1330 / 1330 665 / 665 1180 / 1180 Cleocin 900 mg/NS Premix 900 mg 100 / 100 50 / 50 50 / 50 In 50 ml @ 100 mls/hr IV.SIG Q8H REYNALDO Rx#:[id number] Merrem Inj 2,000 MG In NS Inj 200 / 200 100 / 100 100 / 100 100 ML @ 200 mls/hr IV.SIG Q8H REYNALDO Rx#:[id number] Vancomycin Inj 1,500 MG In NS 1030 / 1030 515 / 515 1030 / 1030 Inj 500 ML @ 250 mls/hr IV.SIG Q8H REYNALDO Rx#:[id number] Oral 780 / 780 480 / 480 Other: # Voids 4 3 Date of Last Bowel Movement 07/21/18 07/21/18 07/21/18 # Bowel Movements 1 Narrative: GENERAL: Patient in no acute distress. Sitting up in bed. CARDIOVASCULAR: Regular rate and rhythm without murmurs, gallops, or rubs. RESPIRATORY: Breath sounds equal bilaterally. No accessory muscle use. GASTROINTESTINAL: Abdomen soft, non-tender, nondistended. MUSCULOSKELETAL: Left arm is wrapped from above the elbow to the wrist. Hand is edematous. Neurovascularly intact distally. Results - Labs CBC & Chem 7: 07/22/18 07:37 07/21/18 06:22 Laboratory Results - last 24 hr 07/22/18 07:37 WBC 13.5 H RBC 4.70 Hgb 14.5 D Hct 41.6 MCV 88.5 MCH 30.8 MCHC 34.8 RDW 14.0 Plt Count 375 D MPV 7.0 Microbiology 07/20/18 07:32 Tissue - Elbow Gram Stain - Final 07/20/18 07:32 Tissue - Elbow Wound Culture - Preliminary gram positive cocci 07/20/18 07:32 Tissue - Elbow Gram Stain - Final 07/20/18 07:32 Tissue - Elbow Wound Culture - Preliminary No growth in 24 hours 07/20/18 07:32 Tissue - Elbow Acid Fast Bacilli Smear - Final No acid fast bacilli seen 07/20/18 07:32 Tissue - Elbow Acid Fast Bacilli Smear - Final No acid fast bacilli seen - Procedures 07/20 irrigation and debridement left elbow with excision of the olecranon bursitis with Dr. Mahan Assessment and Plan - Assessment (1) Sepsis Code(s): A41.9 - Sepsis, unspecified organism Status: Acute (2) Cellulitis Code(s): L03.90 - Cellulitis, unspecified Status: Acute - Plan 22-year-old male patient with: Sepsis present on admission with leukocytosis and tachycardia Left elbow and upper extremity cellulitis -Patient complaint of abrasion to laceration to left elbow x 2 weeks ago. Worsened pain and swelling x 1 day with reported fever at home. -Blood cultures shows no growth to date. Wound cultures pending. So far negative. Tissue culture growing gram-positive cocci. Currently on meropenem and Vancomycin and clindamycin per infectious disease Dr. Montoya Status post I&D of the left elbow with excision of the olecranon bursitis with orthopedic surgery Dr. Mahan on 07/20/18. [place] to be removed in a.m. per orthopedics. -Encourage extremity elevation. NauseaResolved -Supportive care. Antiemetics as needed. DVT Prophylaxis: No mechanical or pharmaceutical VTE prophalaxis administered due to patient's low risk assessment of VTE. Encouraged ambulation. Discharge Planning: When cleared by Orthopedics and ID. Follow cultures. (1) Sepsis Qualifiers: Sepsis type: sepsis due to unspecified organism Qualified Code(s): A41.9 - Sepsis, unspecified organism (2) Cellulitis Qualifiers: Site of cellulitis: extremity Site of cellulitis of extremity: upper extremity Laterality: left Qualified Code(s): L03.114 - Cellulitis of left upper limb
[2018-07-23] MEDS: Meropenem Inj 2,000 MG in Sodium Chlor 0.9% Inj 100 ML IV.SIG SCH ×2 (01:15→08:00)
[2018-07-23] MEDS: Senna/Docusate Sodium 8.6/50 MG Tablet PO SCH ×3 (02:16→22:04)
[2018-07-23] MEDS: Clindamycin 900 mg/NS Premix 900 MG/50 ML PIGGYBACK IV.SIG SCH ×2 (02:17→10:00)
[2018-07-23] MEDS: Vancomycin Inj 1,500 MG in Sodium Chlor 0.9% Inj 500 ML IV.SIG SCH ×3 (04:56→22:03)
[2018-07-23] MEDS: Timolol 0.5% Drops 5 ML Bottle EACH EYE SCH (09:00)
--- NOTE | 2018-07-23 10:00 | P.PNOP ---
Subjective Interval history: s/p elbow I&D stable no changes Physical Exam Vital signs: Vital Signs 07/22/18 12:00 07/22/18 16:00 07/22/18 20:00 Temperature 98.3 F 98.9 F 98.4 F Pulse Rate 66 75 84 Respiratory Rate 20 20 18 Blood Pressure 143/79 H 129/63 133/66 Pulse Oximetry 95 98 96 07/23/18 00:00 07/23/18 04:00 Temperature 98 F 98.6 F Pulse Rate 82 78 Respiratory Rate 18 Blood Pressure 129/65 137/65 Pulse Oximetry 96 96 Intake & Output 07/22/18 07/23/18 07/23/18 18:59 06:59 18:59 Intake Total 1280 / 1280 715 / 715 Balance 1280 / 1280 715 / 715 Weight 81.6 kg Intake: IV 1280 / 1280 715 / 715 Cleocin 900 mg/NS Premix 900 mg 50 / 50 100 / 100 In 50 ml @ 100 mls/hr IV.SIG Q8H REYNALDO Rx#:[id number] Merrem Inj 2,000 MG In NS Inj 200 / 200 100 / 100 100 ML @ 200 mls/hr IV.SIG Q8H REYNALDO Rx#:[id number] Vancomycin Inj 1,500 MG In NS 1030 / 1030 515 / 515 Inj 500 ML @ 250 mls/hr IV.SIG Q8H REYNALDO Rx#:[id number] Other: # Voids 8 2 Date of Last Bowel Movement 07/22/18 07/22/18 # Bowel Movements 1 1 Narrative: LUE: dressings clean and dry. intact. NVI Results - Labs CBC & Chem 7: 07/22/18 07:37 07/21/18 06:22 Microbiology 07/20/18 07:32 Tissue - Elbow Gram Stain - Final 07/20/18 07:32 Tissue - Elbow Wound Culture - Final 07/20/18 07:32 Tissue - Elbow Gram Stain - Final 07/20/18 07:32 Tissue - Elbow Wound Culture - Final Group A beta Strep - Procedures 07/20 irrigation and debridement left elbow with excision of the olecranon bursitis with Dr. Mahan Assessment and Plan - Assessment and Plan Cellulitis left arm. Abscess left elbow/olecranon bursa. Surgery: Status post left elbow I&D with excision of olecranon bursa: POD #3 () Continue IV antibiotic's per infectious disease Change dressing and remove David drain on postop day #3 OT consult for elbow range of motion. Monitor cultures, negative so far.
--- NOTE | 2018-07-23 13:23 | P.PNID ---
Subjective Remarks: Patient notes pain in the left arm. Still has swelling particularly below the elbow. Extensive swelling at the left hand. Patient notes sweats at night. No fever. White blood cell count decreased. Wound culture has group A beta strep. Patient status post IND of left elbow. This is a 22-year-old white male who scraped his left elbow approximately 2 weeks ago. The patient states that he noticed swelling of his left elbow 4 days ago and then after that, the left arm started to become erythematous beginning at the elbow just below and above and subsequently spreading up the arm and also down to the wrist. He presented to the emergency department on 07/16/2018 to be evaluated and on admission his temperature was 101.8 degrees. He states that his temperature at home was up to 102.6. The white count was also markedly elevated at 28.7. Lines: IV peripheral line intact. Past Medical History: PAST MEDICAL HISTORY: Suspected glaucoma. Allergies/Adverse Reactions: Allergies amoxicillin Allergy (Verified 07/16/18 09:19) Hives Objective Vital Signs 07/22/18 16:00 07/22/18 20:00 07/23/18 00:00 Temperature 98.9 F 98.4 F 98 F Pulse Rate 75 84 82 Respiratory Rate 20 18 Blood Pressure 129/63 133/66 129/65 Pulse Oximetry 98 96 96 07/23/18 04:00 07/23/18 08:00 Temperature 98.6 F 98.4 F Pulse Rate 78 67 Respiratory Rate 18 20 Blood Pressure 137/65 141/75 H Pulse Oximetry 96 95 Intake & Output 07/22/18 07/23/18 07/23/18 18:59 06:59 18:59 Intake Total 1280 / 1280 715 / 715 Balance 1280 / 1280 715 / 715 Weight 81.6 kg Intake: IV 1280 / 1280 715 / 715 Cleocin 900 mg/NS Premix 900 mg 50 / 50 100 / 100 In 50 ml @ 100 mls/hr IV.SIG Q8H RE[facility] Rx#:[id number] Merrem Inj 2,000 MG In NS Inj 200 / 200 100 / 100 100 ML @ 200 mls/hr IV.SIG Q8H REYNA[facility]O Rx#:[id number] Vancomycin Inj 1,500 MG In NS 1030 / 1030 515 / 515 Inj 500 ML @ 250 mls/hr IV.SIG Q8H REYNALDO Rx#:[id number] Other: # Voids 8 2 Date of Last Bowel Movement 07/22/18 07/22/18 # Bowel Movements 1 1 07/20/18 07:32 Tissue - Elbow Gram Stain - Final 07/20/18 07:32 Tissue - Elbow Wound Culture - Final 07/20/18 07:32 Tissue - Elbow Gram Stain - Final 07/20/18 07:32 Tissue - Elbow Wound Culture - Final Group A beta Strep 07/20/18 07:32 Tissue - Elbow Acid Fast Bacilli Smear - Final No acid fast bacilli seen 07/20/18 07:32 Tissue - Elbow Mycobacterial Culture - Pending 07/20/18 07:32 Tissue - Elbow Acid Fast Bacilli Smear - Final No acid fast bacilli seen 07/20/18 07:32 Tissue - Elbow Mycobacterial Culture - Pending 07/16/18 09:40 Blood - Peripheral Aerobic Blood Culture - Final No growth in 5 days 07/16/18 09:40 Blood - Peripheral Anaerobic Blood Culture - Final No growth in 5 days 07/16/18 09:45 Blood - Peripheral Aerobic Blood Culture - Final No growth in 5 days 07/16/18 09:45 Blood - Peripheral Anaerobic Blood Culture - Final No growth in 5 days 07/20/18 07:32 Tissue - Elbow Fungal Smear - Final No fungal elements seen 07/20/18 07:32 Tissue - Elbow Fungal Culture - Pending 07/20/18 07:32 Tissue - Elbow Fungal Smear - Final No fungal elements seen 07/20/18 07:32 Tissue - Elbow Fungal Culture - Pending Lab - Hematology Results 07/22/18 07:37 WBC 13.5 H RBC 4.70 Hgb 14.5 D Hct 41.6 MCV 88.5 MCH 30.8 MCHC 34.8 RDW 14.0 Plt Count 375 D MPV 7.0 Imaging: ITS Impressions Elbow CT 07/16/18 00:00 CONCLUSION: 1. Diffuse subcutaneous swelling suggesting cellulitis. 2. No acute fracture, dislocation or other bony abnormality. Elbow MRI 07/19/18 00:00 CONCLUSION: 1. Soft tissue phlegmon predominantly along the posterior aspect of the elbow with fluid stranding throughout the soft tissues but no discrete mature abscess formation. 2. Small to moderate joint effusion. 3. No evidence of destructive bone changes or bone marrow edema. 4. Intact periarticular tendons and ligaments. Physical Exam: PHYSICAL EXAMINATION: GENERAL: No acute distress. Awake, alert and oriented. HEENT: Extraocular muscles intact. Pupils reactive to light. No icterus. Pharynx moist mucosa without lesions. NECK: Supple. No adenopathy or swelling. LUNGS: Clear to auscultation. HEART: Regular S1, S2, without murmurs. ABDOMEN: Bowel sounds present. Soft, nontender. EXTREMITIES: The left arm swelling is decreased above the elbow. However there is still significant swelling below the elbow or to the dorsum of the hand. Redness has improved. However there is still some redness at the left hand and the elbow. SKIN: No diffuse rash. NEUROLOGIC: No gross focal findings. PSYCHIATRIC: Calm and cooperative. Assessment and Plan - Plan IMPRESSION: 1. Severe cellulitis of the left upper extremity. Slow to improve. Group A strep. 2. ALLERGY TO AMOXICILLIN. RECOMMENDATIONS: 1. Continue vancomycin. 2. Stop clindamycin. 3. Stop meropenem. 4. Wrap the area below the elbow with Zachariah wrap. Monitor response. 5. Monitor white blood cell count. 6. Elevate the left arm.
--- NOTE | 2018-07-23 15:53 | P.PNIM ---
Subjective Interval history: Patient reports the hand swelling is slightly worse today. Pain is controlled. No fevers. Physical Exam Vital signs: Vital Signs 07/22/18 16:00 07/22/18 20:00 07/23/18 00:00 Temperature 98.9 F 98.4 F 98 F Pulse Rate 75 84 82 Respiratory Rate 20 18 Blood Pressure 129/63 133/66 129/65 Pulse Oximetry 98 96 96 07/23/18 04:00 07/23/18 08:00 07/23/18 12:00 Temperature 98.6 F 98.4 F 98.6 F Pulse Rate 78 67 75 Respiratory Rate 18 20 20 Blood Pressure 137/65 141/75 H 136/70 Pulse Oximetry 96 95 95 Intake & Output 07/22/18 07/23/18 07/23/18 18:59 06:59 18:59 Intake Total 1280 / 1280 715 / 715 515 / 515 Balance 1280 / 1280 715 / 715 515 / 515 Weight 81.6 kg Intake: IV 1280 / 1280 715 / 715 515 / 515 Cleocin 900 mg/NS Premix 900 mg 50 / 50 100 / 100 In 50 ml @ 100 mls/hr IV.SIG Q8H RE[facility] Rx#:[id number] Merrem Inj 2,000 MG In NS Inj 200 / 200 100 / 100 100 ML @ 200 mls/hr IV.SIG Q8H REYNALDO Rx#:[id number] Vancomycin Inj 1,500 MG In NS 1030 / 1030 515 / 515 515 / 515 Inj 500 ML @ 250 mls/hr IV.SIG Q8H REYNALDO Rx#:[id number] Other: # Voids 8 2 Date of Last Bowel Movement 07/22/18 07/22/18 # Bowel Movements 1 1 Narrative: GENERAL: Patient in no acute distress. Sitting up in bed. CARDIOVASCULAR: Regular rate and rhythm without murmurs, gallops, or rubs. RESPIRATORY: Breath sounds equal bilaterally. No accessory muscle use. GASTROINTESTINAL: Abdomen soft, non-tender, nondistended. MUSCULOSKELETAL: Left arm is wrapped from above the elbow to the wrist. Left hand swelling is worse. Neurovascularly intact distally. Results - Labs CBC & Chem 7: 07/22/18 07:37 07/21/18 06:22 Microbiology 07/20/18 07:32 Tissue - Elbow Gram Stain - Final 07/20/18 07:32 Tissue - Elbow Wound Culture - Final 07/20/18 07:32 Tissue - Elbow Gram Stain - Final 07/20/18 07:32 Tissue - Elbow Wound Culture - Final Group A beta Strep - Procedures 07/20 irrigation and debridement left elbow with excision of the olecranon bursitis with Dr. Mahan Assessment and Plan - Assessment (1) Sepsis Code(s): A41.9 - Sepsis, unspecified organism Status: Acute (2) Cellulitis Code(s): L03.90 - Cellulitis, unspecified Status: Acute - Plan 22-year-old male patient with: Sepsis present on admission with leukocytosis and tachycardia Left elbow and upper extremity cellulitis -Patient complaint of abrasion to laceration to left elbow x 2 weeks ago. Worsened pain and swelling x 1 day with reported fever at home. -Blood cultures shows no growth to date. Wound cultures pending. So far negative. Tissue culture growing group A beta strep Currently on meropenem and Vancomycin and clindamycin per infectious disease Dr. Montoya Status post I&D of the left elbow with excision of the olecranon bursitis with orthopedic surgery Dr. Mahan on 07/20/18. David to be removed per orthopedics. -Encourage extremity elevation. - ID will follow up today. NauseaResolved -Supportive care. Antiemetics as needed. DVT Prophylaxis: No mechanical or pharmaceutical VTE prophalaxis administered due to patient's low risk assessment of VTE. Encouraged ambulation. Discharge Planning: When cleared by Orthopedics and ID. Follow cultures. (1) Sepsis Qualifiers: Sepsis type: sepsis due to unspecified organism Qualified Code(s): A41.9 - Sepsis, unspecified organism (2) Cellulitis Qualifiers: Site of cellulitis: extremity Site of cellulitis of extremity: upper extremity Laterality: left Qualified Code(s): L03.114 - Cellulitis of left upper limb
[2018-07-24] MEDS: Vancomycin Inj 1,500 MG in Sodium Chlor 0.9% Inj 500 ML IV.SIG SCH ×2 (04:14→12:00)
--- NOTE | 2018-07-24 07:30 | P.PNOP ---
Subjective Interval history: s/p I&D by Dr Mahan of left elbow doing well. pain controlled. no new complaints. Physical Exam Vital signs: Vital Signs 07/23/18 08:00 07/23/18 12:00 07/23/18 16:00 Temperature 98.4 F 98.6 F 99.1 F Pulse Rate 67 75 73 Respiratory Rate 20 20 20 Blood Pressure 141/75 H 136/70 144/74 H Pulse Oximetry 95 95 97 07/23/18 20:00 07/24/18 00:00 07/24/18 04:00 Temperature 98.3 F 98.0 F 97.9 F Pulse Rate 72 74 71 Respiratory Rate 18 20 17 Blood Pressure 139/60 144/68 H 139/66 Pulse Oximetry 99 97 96 Intake & Output 07/23/18 07/24/18 07/24/18 18:59 06:59 18:59 Intake Total 1660 / 1660 515 / 515 Output Total 500 / 500 Balance 1160 / 1160 515 / 515 Weight 75.2 kg Intake: IV 1180 / 1180 515 / 515 Cleocin 900 mg/NS Premix 900 mg 50 / 50 In 50 ml @ 100 mls/hr IV.SIG Q8H RE[facility]LDO Rx#:[id number] Merrem Inj 2,000 MG In NS Inj 100 / 100 100 ML @ 200 mls/hr IV.SIG Q8H RE[facility]NALDO Rx#:[id number] Vancomycin Inj 1,500 MG In NS 1030 / 1030 515 / 515 Inj 500 ML @ 250 mls/hr IV.SIG Q8H REYNALDO Rx#:[id number] Oral 480 / 480 Output: Urine 500 / 500 Other: # Voids 2 3 Date of Last Bowel Movement 07/22/18 07/23/18 # Bowel Movements 1 3 Narrative: LUE: mild serous drainage from sue drain site. remaining incision healing well. moderate swelling of upper arm. NVI Results - Labs CBC & Chem 7: 07/22/18 07:37 07/21/18 06:22 Microbiology 07/20/18 07:32 Tissue - Elbow Gram Stain - Final 07/20/18 07:32 Tissue - Elbow Wound Culture - Final 07/20/18 07:32 Tissue - Elbow Gram Stain - Final 07/20/18 07:32 Tissue - Elbow Wound Culture - Final Group A beta Strep - Procedures 11/21 irrigation and debridement left elbow with excision of the olecranon bursitis with Dr. Mahan Assessment and Plan - Assessment and Plan Cellulitis left arm. Abscess left elbow/olecranon bursa. Surgery: Status post left elbow I&D with excision of olecranon bursa: POD #4 () Continue IV antibiotic's per infectious disease drain removed at bedside today daily dressing changes with xeroform/4x4/gomez OT consult for elbow range of motion. Monitor cultures, negative so far. ortho cleared for DC home with [facility] once Abx arranged per infectious disease team f/u nadya Mahan in 2 weeks for wound check
[2018-07-24] MEDS: Senna/Docusate Sodium 8.6/50 MG Tablet PO SCH (09:00)
[2018-07-24] MEDS: Timolol 0.5% Drops 5 ML Bottle EACH EYE SCH (09:00)
--- NOTE | 2018-07-24 14:48 | P.DS ---
Date of admission: 07/16/18 10:36 Primary care physician: No Primary Care Physician Brief History from admission: This is a 22-year-old male patient who presented to the ED with complaints of left elbow swelling and pain. Patient states that about 2 weeks ago he had cut his left elbow on something, he cannot recall what, and since that time he has been using Neosporin for the cut. He states that the cut had been improving although overnight he developed a fever of 102.5 as well as nausea and vomiting , which prompted his presentation to the ED. He states that last night his left elbow pain worsened as well as the swelling. At the time of assessment today he is unable to fully extend his elbow without significant pain. Elbow is swollen without any fluctuance, does have erythema localized to the elbow. Patient update on day of discharge: Patient reports he is feeling better today. Swelling of the left hand is significantly improved. Cleared by orthopedics for discharge. DS: Diagnosis - Discharge Diagnosis (1) Sepsis Status: Acute (2) Cellulitis Status: Acute DS: Medications - Discharge Medications Prescriptions: clindamycin HCl 300 mg PO TID 10 Days #30 cap hydrocodone-acetaminophen [[place]] 1 tab PO Q4-6H PRN #42 tab PRN Reason: Acute Pain Exception DS: Summary Hospital Course: 22-year-old male patient admitted with sepsis secondary to left elbow and forearm cellulitis and abscess. The patient was admitted and treated with IV antibiotics including meropenem, vancomycin, and clindamycin under the guidance of factious disease. Orthopedic surgery followed the patient and he underwent I &D of the left elbow with excision of the olecranon bursitis. His condition improved. He will continue on oral antibiotics with clindamycin for another 10 days. He will follow-up outpatient with orthopedics. - Time Spent with Patient Total time spent providing and/or coordinating discharge services: Less than 30 minutes - Quality: VTE Deep Vein Thrombosis/Pulmonary Embolism Present on Admission: No Exam Vital signs: Vital Signs 07/23/18 16:00 07/23/18 20:00 07/24/18 00:00 Temperature 99.1 F 98.3 F 98.0 F Pulse Rate 73 72 74 Respiratory Rate 20 18 20 Blood Pressure 144/74 H 139/60 144/68 H Pulse Oximetry 97 99 97 07/24/18 04:00 07/24/18 08:00 07/24/18 12:00 Temperature 97.9 F 97.7 F 98.6 F Pulse Rate 71 70 72 Respiratory Rate 17 20 20 Blood Pressure 139/66 137/66 148/74 H Pulse Oximetry 96 97 98 Intake & Output 07/23/18 07/24/18 07/24/18 18:59 06:59 18:59 Intake Total 1660 / 1660 515 / 515 515 / 515 Output Total 500 / 500 Balance 1160 / 1160 515 / 515 515 / 515 Weight 75.2 kg Intake: IV 1180 / 1180 515 / 515 515 / 515 Cleocin 900 mg/NS Premix 900 mg 50 / 50 In 50 ml @ 100 mls/hr IV.SIG Q8H REYNALDO Rx#:[id number] Merrem Inj 2,000 MG In NS Inj 100 / 100 100 ML @ 200 mls/hr IV.SIG Q8H RE[facility]O Rx#:[id number] Vancomycin Inj 1,500 MG In NS 1030 / 1030 515 / 515 515 / 515 Inj 500 ML @ 250 mls/hr IV.SIG Q8H REYNALDO Rx#:[id number] Oral 480 / 480 Output: Urine 500 / 500 Other: # Voids 2 3 Date of Last Bowel Movement 07/22/18 07/23/18 # Bowel Movements 1 3 Narrative: GENERAL: Patient in no acute distress. Sitting up in bed. CARDIOVASCULAR: Regular rate and rhythm without murmurs, gallops, or rubs. RESPIRATORY: Breath sounds equal bilaterally. No accessory muscle use. GASTROINTESTINAL: Abdomen soft, non-tender, nondistended. MUSCULOSKELETAL: Left arm is wrapped from above the elbow to the wrist. Left hand swelling significantly improved. Neurovascularly intact distally. Results Procedures completed during hospitalization: 07/20 irrigation and debridement left elbow with excision of the olecranon bursitis with Dr. Mahan - Impressions ITS Impressions Elbow CT 07/16/18 00:00 CONCLUSION: 1. Diffuse subcutaneous swelling suggesting cellulitis. 2. No acute fracture, dislocation or other bony abnormality. Elbow MRI 07/19/18 00:00 CONCLUSION: 1. Soft tissue phlegmon predominantly along the posterior aspect of the elbow with fluid stranding throughout the soft tissues but no discrete mature abscess formation. 2. Small to moderate joint effusion. 3. No evidence of destructive bone changes or bone marrow edema. 4. Intact periarticular tendons and ligaments. Discharge Plan - Discharge Disposition Patient Disposition: Discharge Home - Discharge Condition Condition: Good - Discharge Order Discharge Orders: Discharge Order (Routine); Ordered 07/24/18 Ordered By: Rosalino Justice Orthopedic Clear for Discharge (Routine); Ordered 07/24/18 Ordered By: Louis Gibbs - Physicians Team Primary Care Provider: Primary Care [facility] Treviño Attending Provider: Rosalino Justice Other Providers: Rodrigo Fuentes MD ; Andrew Mahan MD ; Denzel Montoya MD
== END 2018-07-24 18:28 | disposition home or self-care (01) ==
LOC: PHED 09:09 → PHEDA 10:36 → PH3 11:22 → N05 07-17 18:41
PROVIDERS: ADMIT Family Medicine; ATTEND Family Medicine
DX: L03.114 Cellulitis of left upper limb; M71.122 Other infective bursitis, left elbow; H40.003 Preglaucoma, unspecified, bilateral; S51.012A Laceration without foreign body of left elbow, initial encounter; A41.9 Sepsis, unspecified organism; Z88.0 Allergy status to penicillin; F12.90 Cannabis use, unspecified, uncomplicated; B95.0 Streptococcus, group A, as the cause of diseases classified elsewhere; L02.414 Cutaneous abscess of left upper limb; R60.0 Localized edema; F17.200 Nicotine dependence, unspecified, uncomplicated